=== PATIENT | female | born 1970 | race Caucasian/White ===

== ENCOUNTER 2023-09-25 18:03 | Observation (INO) | payer OTHER, SELFPAY ==
[2023-09-25] VITALS (13 sets, daily range): BP systolic 120–139; BP diastolic 60–79; PULSE 64–74; RESP 15–21; TEMP 36.6; O2SAT 98–100; BMI 45.6
--- NOTE | ~2023-09-25 | MR_ITS ---
EXAMINATION: MR brain/brain stem wo/w con DATE: 09/26/2023 11:40 CDT INDICATION: Left-sided numbness. TECHNIQUE: Magnetic resonance imaging (MRI) of the brain and brainstem was performed without and with intravenous contrast. Sequences included sagittal and axial T1-weighted SE, axial diffusion-weighted FS SE, axial T2*-weighted GRE, axial T2-weighted FLAIR Propeller, and axial T2-weighted Propeller. A pparent diffusion coefficient (ADC) maps were created. 20 cc MultiHance administered intravenously. COMPARISON: CTA brain/carotid dated 09/25/2023 FINDINGS: The brain volume and ventricular system are within normal limits. The brain parenchymal si gnal intensity pattern and mendoza/white matter is normal and there is no evidence of hemorrhage, space occupying masses or infarctions. The flow signal voids of the major arterial structures about the [place] and within the gabrielle r dural venous sinuses appear grossly unremarkable and patent. The seventh and eighth cranial nerve complexes are normal. The mid sagittal image demonstrates a normal craniovertebral junction and shanta us callosum. The paranasal sinuses are grossly unremarkable. No abnormal contrast enhancement was appreciated. IMPRESSION: 1: Unremarkable MRI of the brain. Reviewed, dictated and finalized at location B.
--- NOTE | ~2023-09-25 | CT_ITS ---
EXAMINATION: CTA brain carotid DATE: 09/25/2023 20:56 INDICATION: Left-sided numbness. Dizziness. TECHNIQUE: Computed tomographic angiography (CTA) of the head was performed without and with 100 mL O mnipaque-350 intravenous contrast. CTA of the neck was performed with intravenous contrast. Automated exposure control and iterative reconstruction technique were employed. The dose-length product was 1 633.82 mGy-cm. Maximum intensity projection and volume rendered 3D-reconstructions were created by jeaneth technologist on a separate workstation. COMPARISON: None. FINDINGS: HEAD CTA: There is no intracranial hemorrhage, acute infarction, or abnormal intracranial mass lesion . The ventricles are normal in size. There is mild mucosal thickening in the paranasal sinuses. The m astoid air cells are normal. The vertebral arteries are codominant. There is no significant stenosis of basilar artery or the posterior cerebral arteries. There is no significant stenosis of the intracr anial internal carotid arteries or anterior or middle cerebral arteries. Posterior communicating shannon calvin are not identified. Anterior communicating artery is normal. There is no aneurysm. NECK CTA: There are no pathologically enlarged lymph nodes. There is no significant stenosis of the v ertebral arteries. There is no significant plaque in the proximal internal carotid arteries. There is 0% stenosis of the proximal right internal carotid artery relative to normal distal artery lumen logan meter (NASCET criteria). There is 0% stenosis of the proximal left internal carotid artery relative t o normal distal artery lumen diameter. There are dystrophic placed since from C3-C4 through C6-C7. Th ere is mild cervical spondylosis. IMPRESSION: 1. Normal brain. No aneurysm or significant intracranial arterial stenosis. 2. 0% stenosis of the proximal internal carotid arteries relative to normal distal artery lumen diame ters (NASCET criteria). Reviewed, dictated and finalized at location E. IMPRESSION: 1. Normal brain. No aneurysm or significant intracranial arterial stenosis. 2. 0% stenosis of the proximal internal carotid arteries relative to normal dis michelle artery lumen diameters (NASCET criteria).
--- NOTE | ~2023-09-25 | XR_ITS ---
EXAMINATION: XR chest 1V portable DATE: 09/25/2023 19:33 INDICATION: Palpitations. TECHNIQUE: A single frontal view of the chest was obtained. COMPARISON: None. FINDINGS: There is no pneumonia, pleural effusion, or pneumothorax. The heart size is normal. There a re surgical changes in cervical spine. IMPRESSION: 1. No acute cardiopulmonary disease. Reviewed, dictated and finalized at location E.
--- NOTE | 2023-09-25 18:12 | ECG_ITS ---
[facility] [address] Test Date: 2023-09-25 Pat Name: Emily Johnson Department: Room: Gender: F Runner Man: : 1970 Requested By: Bruce Jay Order Number: [id number] [place] MD: Donovan Carmona M.D. Measurements Intervals [place] Rate: 70 P: 58 IA: 144 QRS: 22 QRSD: 101 T: 38 QT: 413 QTc: 447 Interpretive Statements SINUS RHYTHM No previous ECG available for comparison Electronically Signed On 09-26-2023 12:05:27 CDT by Donovan Carmona M.D.
[2023-09-25] MEDS: SODIUM CHLORIDE 0.9% IV 1,000 ML 999 ML IV CONT (20:03)
[2023-09-25 20:11] LABS: Basophils Percent Auto 0.5 % (0.2-1.2); Eosinophils Absolute Auto 0.1 K/mm3 (0-0.3); Eosinophils Percent Auto 1.5 % (0-4.4); Hematocrit 44.5 % (37.0-47.0); Hemoglobin 14.3 g/dL (12.0-15.0); Immature Granulocyte Absolute 0.02 K/mm3 (0.00-0.031); Immature Granulocyte Percent A 0.2 % (0-0.5); Lymphocytes Absolute Auto 1.65 K/mm3 (0.9-3.2); Lymphocytes Percent Auto 19.1 % (18.3-44.2); Mean Corpuscular HGB Conc 32.1 g/dl (32-36); Mean Corpuscular Volume 90.3 fl (80-100); Mean Platelet Volume 10.4 fl (7.4-10.4); Monocytes Absolute Auto 0.5 K/mm3 (0.1-0.6); Monocytes Percent Auto 5.7 % (2.6-8.5); Neutrophils Absolute Auto 6.3 K/mm3 (1.3-6.7); Platelet Count Result 287 k/mm3 (150-375); Red Blood Count 4.93 M/mm3 (4.2-5.4); Red Cell Distribution Width 13.4 % (11.5-14.5); White Blood Count 8.7 K/mm3 (4.5-10.0)
[2023-09-25 20:19] LABS: Appearance Urine Cloudy (Clear); Bacteria Urine 4+ /hpf; Bilirubin Urine Negative (Negative); Blood Urine Negative (Negative); Color Urine Yellow (Yellow); Glucose Urine UA Trace mg/dL (Negative); Ketones Urine Negative (Negative); Leukocyte Esterase Ur 2+ LEU/UL (Negative); Nitrate Urine Positive (Negative); Non Pathogenic Casts 0-2; Protein Urine Negative (Negative); RBC Urine 0-2 /hpf (0-2); Specific Grav Ur 1.023 (1.001-1.035); Squamous Epithelial Cell Urine Moderate /hpf (Few); WBC Urine 51-100 /hpf (0-3); pH Urine 6.5 (5.0-9.0)
[2023-09-25 20:20] LABS: Alanine Aminotransferase 27 U/L (6-35); Albumin Level 4.7 g/dL (3.5-5.1); Alkaline Phosphatase 128 U/L (38-126); Anion Gap 9 mmol/L (4-12); Aspartate Amino Transferase 27 U/L (14-36); Bilirubin,Total 0.5 mg/dL (0.2-1.3); Blood Urea Nitrogen 9 mg/dL (7-17); Carbon Dioxide 26 mmol/L (22-30); Chloride 107 mmol/L (98-107); Estimated CRCL calculation 113 ml/min; Estimated Glomerular Filt Rate > 60; Glucose 92 mg/dL (65-110); Magnesium 2.1 mg/dL (1.6-2.3); Sodium 142 mmol/L (137-145)
--- NOTE | 2023-09-25 20:20 | ED.GENADULT ---
HPI - General Adult General Chief complaint: Arrhythmia/Palpitations Stated complaint: Chest Flutter Time Seen by Provider: 09/25/23 19:08 History of Present Illness HPI narrative: okay patient before year old female who presents emergency department with chief complaint of palpitations. The patient reports that she has been having feeling of dizziness and reports that she started having a tingling sensation on the left side of her body. Patient reports that she has no motor weakness reports no difficulty with speech no difficulty walking does notice that she has had some swelling in her lower extremities. The patient states that she just feels generally unwell today Related Data Allergies Allergy/AdvReac Type Severity Reaction Status Date / Time acetaminophen [From Vicodin] Allergy Hives Verified 09/25/23 18:14 hydrocodone [From Vicodin] Allergy Hives Verified 09/25/23 18:14 morphine AdvReac Itching Verified 09/25/23 18:14 Review of Systems Review of Systems: A 10 system review of systems was completed on the patient and is negative except for what is stated in the HPI. Nursing and ancillary documentation was reviewed. Exam Narrative: GENERAL: Well-appearing, well-nourished, and in no acute distress. HEAD: Normocephalic, atraumatic. EYES: PERRLA and EOMI. ENT: Nares clear, no rhinorrhea or epistaxis. Mucous membranes moist. NECK: Supple. CHEST: Clear to auscultation. No respiratory distress. HEART: Regular rate and rhythm. No murmur heard. Normal peripheral pulses. ABDOMEN: Soft, nontender, nondistended, normal active bowel sounds. EXTREMITIES: Normal range of motion. No edema. SKIN: Warm, dry, no rash. NEURO: Patient has good range of motion all extremities. No facial droop, slight decreased sensation in the left upper and left lower extremity Alert and oriented x3. PSYCH: Normal mood and affect. Course Vital Signs Vital signs: Vital Signs Temperature 36.6 C 09/25/23 18:10 Pulse Rate 64 09/25/23 18:10 Respiratory Rate 18 09/25/23 18:10 Blood Pressure 139/75 09/25/23 18:10 Pulse Oximetry 98 09/25/23 18:10 Oxygen Delivery Room Air 09/25/23 18:10 Temperature 36.6 C 09/25/23 18:10 Pulse Rate 71 09/25/23 19:02 Respiratory Rate 15 09/25/23 19:02 Blood Pressure 129/79 09/25/23 19:02 Pulse Oximetry 100 09/25/23 19:02 Oxygen Delivery Room Air 09/25/23 18:10 Medical Decision Making [facility] Narrative Medical decision making narrative: differential diagnosis includes CVA, electrolyte abnormality, dysrhythmia, laboratory studies were obtained on the patient which showed evidence of a urinary tract infection. Electrolytes were otherwise within normal limits. CTA head and neck showed no acute abnormality chest x-ray showed no focal infiltrate. EKG showed a dysrhythmia the patient was observed on the monitor showing no evidence of dysrhythmia. The patient has an NIH stroke scale of at most 1 due to the slight decreased sensation on the left arm and left leg. At this time the patient does not meet criteria for tPA and in discussion with the patient the risk benefits of thrombolytics therapy and felt they would not want to pursue given mildness of the symptoms. the patient will be admitted to the hospitalist service for observation MRI the patient was started on Rocephin for the urinary tract infection Vital Signs Vital Signs: Vital Signs Temperature 36.6 C 09/25/23 18:10 Pulse Rate 64 09/25/23 18:10 Respiratory Rate 18 09/25/23 18:10 Blood Pressure 139/75 09/25/23 18:10 Pulse Oximetry 98 09/25/23 18:10 Oxygen Delivery Room Air 09/25/23 18:10 Temperature 36.6 C 09/25/23 18:10 Pulse Rate 71 09/25/23 19:02 Respiratory Rate 15 09/25/23 19:02 Blood Pressure 129/79 09/25/23 19:02 Pulse Oximetry 100 09/25/23 19:02 Oxygen Delivery Room Air 09/25/23 18:10 Lab Data 09/25/23 20:02 09/25/23 20
[2023-09-25 20:21] LABS: Lactic Acid Reflex 1.2 mmol/L (0.7-2.0)
[2023-09-25 20:25] LABS: Add Urine Microscopic? YES; Prothrombin Time 13.1 Seconds (11.1-14.7)
[2023-09-25 20:32] LABS: Troponin I < 0.012 ng/mL (0.000-0.034)
--- NOTE | 2023-09-25 22:39 | PM.IMHP ---
H&P: HPI History of Present Illness Date/Time: 09/25/23 22:39 Chief Complaint: Left arm and hand weakness and numbness Narrative: 53-year-old female who came to the emergency room complaining of numbness and weakness of the left hand. Patient also has generalized complains of generalized weakness lower extremity edema and also some weakness in both the lower extremities. Patient states that all this started with tingling sensation of her left hand and body and has got a little better since then. Patient has no motor weakness no deficit no bloody stool vision no hearing loss no speech difficulty but does complain of some word-finding. No previous history of seizure disorder no history of any stroke Review of Systems Review of Systems: No fevers chills nausea vomiting. No double vision no blurry vision. No difficulty hearing or sinus complaints. No chest pain shortness of breath fever palpitation dizziness ankle swelling. No coughing wheezing chills. No nausea constipation diarrhea abdominal pain reflux. No urgency frequency of urination. No hematuria. No skin rash eczema. No anxiety depression difficulty sleeping. No bleeding gums enlarged glands. No muscle ache back pain joint stiffness. No loss of strength numbness headache tremor or loss of memory. Meds Home Medications and Allergies Allergies Allergy/AdvReac Type Severity Reaction Status Date / Time acetaminophen [From Vicodin] Allergy Hives Verified 09/25/23 18:14 hydrocodone [From Vicodin] Allergy Hives Verified 09/25/23 18:14 morphine AdvReac Itching Verified 09/25/23 18:14 Vital Signs Vital Signs - 24 hr 09/25/23 18:10 09/25/23 18:11 09/25/23 18:12 Temperature 36.6 C Pulse Rate 64 Respiratory Rate 18 Blood Pressure 139/75 139/75 Pulse Oximetry 98 100 98 Oxygen Delivery Room Air 09/25/23 18:15 09/25/23 18:17 09/25/23 18:30 Temperature Pulse Rate 69 Respiratory Rate 17 Blood Pressure 120/65 Pulse Oximetry 99 99 99 Oxygen Delivery 09/25/23 18:32 09/25/23 18:45 09/25/23 18:47 Temperature Pulse Rate 68 70 66 Respiratory Rate 17 18 15 Blood Pressure 122/60 123/66 Pulse Oximetry 99 98 100 Oxygen Delivery 09/25/23 19:00 09/25/23 19:02 09/25/23 22:24 Temperature Pulse Rate 70 71 74 Respiratory Rate 21 H 15 15 Blood Pressure 129/79 Pulse Oximetry 100 100 100 Oxygen Delivery Exam Narrative: GENERAL: Well appearing, no acute distress. HEAD: Normocephalic, atraumatic. NECK: Supple. No adenopathy, no masses. RESPIRATORY: respirations nonlabored. , no rales, wheezing. CARDIOVASCULAR: Regular rate and rhythm without murmurs, . Peripheral pulses 2+ and equal bilaterally. ABDOMINAL: Soft, nontender, nondistended, no hepatosplenomegaly. Normoactive BS. MUSCULOSKELETAL: no Epigastric and no hypochondrial tenderness SKIN: Warm, dry, NEURO: A&O X3. Moves all extremities H&P: Results Labs Labs: Short CBC 09/25/23 Range/Units 20:02 WBC 8.7 (4.5-10.0) K/mm3 Hgb 14.3 (12.0-15.0) g/dL Hct 44.5 (37.0-47.0) % Plt Count 287 (150-375) k/mm3 BMP 09/25/23 20:02 Sodium 142 Potassium 4.0 Chloride 107 Carbon Dioxide 26 BUN 9 Creatinine 0.70 Glucose 92 Calcium 9.0 Cardiac Enzymes 09/25/23 Range/Units 20:02 Troponin I < 0.012 (0.000-0.034) ng/mL Liver Function 09/25/23 Range/Units 20:02 Total Bilirubin 0.5 (0.2-1.3) mg/dL AST 27 (14-36) U/L ALT 27 (6-35) U/L Alkaline Phosphatase 128 H (38-126) U/L Albumin 4.7 (3.5-5.1) g/dL Urine 09/25/23 Range/Units 20:02 Urine Color Yellow (Yellow) Urine Appearance Cloudy H (Clear) Urine pH 6.5 (5.0-9.0) Ur Specific [place] 1.023 (1.001-1.035) Urine Protein Negative (Negative) mg/dL Urine Glucose (UA) Trace H (Negative) mg/dL Assessment and Plan Assessment and plan (1) Left sided numbness: Code(s):
--- NOTE | 2023-09-25 22:52 | ADMGEN ---
This patient, Emily Johnson, was admitted to Medical Room 349-01. Patient/family oriented to hospital policies and general routines including ID bracelet, bed and alarms, visiting hours, pain management, procedures, bathroom and other care routines, personal items, smoking policy, room service/diet, and visiting hours. Information on how to activate the Rapid Response Team has been discussed. Patient/Family are encouraged to report perceived risks to care and to ask questions if they do not understand what they are told or what they should do.
[2023-09-25 23:17] LABS: Hemoglobin A1C 5.4 % (<5.7)
[2023-09-26] VITALS (7 sets, daily range): BP systolic 117–130; BP diastolic 60–70; PULSE 64–100; RESP 16–20; TEMP 36.2–36.8; O2SAT 96–100
[2023-09-26 00:03] LABS: Troponin I < 0.012 ng/mL (0.000-0.034)
[2023-09-26] MEDS: traZODone HCL 50 MG TABLET 100 MG PO ×2 (00:59→20:13)
[2023-09-26] MEDS: ACETAMINOPHEN 325 MG TABLET 650 MG PO ×3 (00:59→21:51)
[2023-09-26] MEDS: buPROPion HCL XL (24 HR) 150 MG TABCR 300 MG PO ×2 (00:59→20:11)
[2023-09-26] MEDS: TOLTERODINE TARTRATE LA 4 MG CAP.ER.24H PO ×2 (00:59→20:11)
[2023-09-26] MEDS: LEVOTHYROXINE SODIUM 112 MCG TABLET PO (05:29)
[2023-09-26 05:39] LABS: Basophils Percent Auto 0.5 % (0.2-1.2); Eosinophils Absolute Auto 0.2 K/mm3 (0-0.3); Eosinophils Percent Auto 2.8 % (0-4.4); Hematocrit 38.2 % (37.0-47.0); Hemoglobin 11.8 g/dL (12.0-15.0); Immature Granulocyte Absolute 0.01 K/mm3 (0.00-0.031); Immature Granulocyte Percent A 0.2 % (0-0.5); Lymphocytes Absolute Auto 2.23 K/mm3 (0.9-3.2); Lymphocytes Percent Auto 36.4 % (18.3-44.2); Mean Corpuscular HGB Conc 30.9 g/dl (32-36); Mean Corpuscular Hemoglobin 28.2 pg (26-34); Mean Corpuscular Volume 91.2 fl (80-100); Mean Platelet Volume 10.2 fl (7.4-10.4); Monocytes Absolute Auto 0.4 K/mm3 (0.1-0.6); Monocytes Percent Auto 6.7 % (2.6-8.5); Neutrophils Absolute Auto 3.3 K/mm3 (1.3-6.7); Neutrophils Percent Auto 53.4 % (45.5-73.1); Platelet Count Result 252 k/mm3 (150-375); Red Blood Count 4.19 M/mm3 (4.2-5.4); Red Cell Distribution Width 13.3 % (11.5-14.5); White Blood Count 6.1 K/mm3 (4.5-10.0)
[2023-09-26 05:58] LABS: Alanine Aminotransferase 20 U/L (6-35); Albumin Level 3.5 g/dL (3.5-5.1); Alkaline Phosphatase 93 U/L (38-126); Anion Gap 4 mmol/L (4-12); Aspartate Amino Transferase 21 U/L (14-36); Bilirubin,Total 0.3 mg/dL (0.2-1.3); Blood Urea Nitrogen 7 mg/dL (7-17); Calcium 8.2 mg/dL (8.4-10.2); Carbon Dioxide 25 mmol/L (22-30); Chloride 111 mmol/L (98-107); Estimated CRCL calculation 112 ml/min; Estimated Glomerular Filt Rate > 60; Glucose 93 mg/dL (65-110); Potassium 3.8 mmol/L (3.4-5.0); Sodium 140 mmol/L (137-145)
--- NOTE | 2023-09-26 07:53 | PM.IMPN ---
Progress Note: A&P Assessment and Plan (1) Left sided numbness: Code(s): R20.0 - Anesthesia of skin Status: Acute Assessment and Plan: left hand numbness. Stroke evaluation. Possible complex migraine causing symptoms. -Vitals and monitoring: - neurochecks - q4 hours x 24 hours - Continuous cardiac monitoring and residential monitor blood pressures closely Imaging: -MRI brain without contrast : pending CTA head and neck done which is negative appears less likely a stroke but will wait for the final MRI findings. (2) Heart palpitations: Code(s): R00.2 - Palpitations Status: Acute Assessment and Plan: On levothyroxine 112 mcg daily TSH reflex ordered and is normal (3) UTI (urinary tract infection): Code(s): N39.0 - Urinary tract infection, site not specified Status: Acute Assessment and Plan: UTI Urine cultures and sensitivity. Continue IV hydration. Monitor CBC CMP Monitor vital signs Start antibiotics IV Rocephin Blood cultures Monitor for obstructive uropathy and pyelonephritis Patient with asymptomatic cystitis. Will stop IV antibiotics now. Patient has been instructed that if she has dysuria, suprapubic tenderness, flank pain, nausea vomiting, fever chills to be re-evaluated with her PCP. Urine culture is pending. Subjective Date/time seen: 09/26/23 07:53 Interval history: 53-year-old female who came to the emergency room complaining of numbness and weakness of the left hand.? Patient also has generalized complains of generalized weakness lower extremity edema and also some weakness in both the lower extremities.? Patient states that all this started with tingling sensation of her left hand and body and has got a little better since then.? Patient has no motor weakness no deficit no bloody stool vision no hearing loss no speech difficulty but does complain of some word-finding.? No previous history of seizure disorder no history of any stroke. 09/25: Patient is seen after her MRI this morning. She is somewhat drowsy because she did receive Xanax prior to the MRI for claustrophobia. She reports that she came in with left-sided numbness and tingling. She describes it as feeling like when your limb falls asleep. She reports that her foot is asleep right now but the rest of her symptoms have resolved. She does still have a persistent migraine headache though. Tylenol is not helping. Will add Fioricet now. MRI of the brain was completed. If MRI is negative patient should likely be able to discharge home today with diagnosis of complex migraine and appropriate PCP follow-up. Review of Systems Review of Systems: All systems reviewed & are unremarkable except as noted in HPI and below Exam Narrative: General: well appearing, appears stated age. HEENT: normocephalic, atraumatic. Mucous membranes moist. EOMI, PERRLA, bilateral sclera anicteric, no conjunctival injection. Neck supple without JVD, lymphadenopathy, or bruit. Respiratory: clear to auscultation bilaterally. No rales/rhonic/wheezes. Cardiovascular: Regular rate and rhythm, normal S1-S2 upon auscultation. No murmurs, rubs, or clicks. PMI is nondisplaced, capillary refill less than 3 second. Abdomen: Soft, round, no pulsatile masses, nondistended and nontender. No rebound, no guarding. No CVA tenderness, no hepatosplenomegaly. Bowel sounds present to all four quadrants. No high pitch or tinkling sounds, resonant to percussion. Extremities: No cyanosis, clubbing, or edema present. Pulses are palpable 2/2. Active ROM to all four extremities. Muscle strength is equal 5/5 to upper and lower extremities. Neuro: Drowsy and orientated x 4. PERRLA. Cranial nerves 2-12 intact without focal deficit. Skin: Warm, dry, and intact, without rash, erythema, or lesion. Lines: Incisions: Psych: pleasant, cooperative, normal speech, normal affect, no hallucinations, no dysarthria Objective Data
[2023-09-26] MEDS: ENOXAPARIN 40 MG/0.4 ML SYRINGE SUB-Q (08:35)
[2023-09-26] MEDS: ALPRAZolam (*CRX) 0.5 MG TABLET PO (09:36)
[2023-09-26] MEDS: ACETAMINOPHEN/BUTALBITAL/CAFFEINE 325-50-40 MG TABLET (FIORICET) 1 TAB PO ×2 (14:36→20:11)
[2023-09-26] MEDS: ONDANSETRON INJ 4 MG/2 ML VIAL IV PUSH (20:09)
[2023-09-27] VITALS: BP 155/68; PULSE 87; RESP 16; TEMP 36.3; O2SAT 96
[2023-09-27 04:00] VITALS: BP 102/57; PULSE 69; RESP 18; TEMP 36.7; O2SAT 97
[2023-09-27] MEDS: ACETAMINOPHEN 325 MG TABLET 650 MG PO (05:29)
[2023-09-27] MEDS: ACETAMINOPHEN/BUTALBITAL/CAFFEINE 325-50-40 MG TABLET (FIORICET) 1 TAB PO ×2 (05:29→09:46)
[2023-09-27] MEDS: LEVOTHYROXINE SODIUM 112 MCG TABLET PO (05:29)
[2023-09-27 08:16] VITALS: BP 103/67; PULSE 66; RESP 15; TEMP 36.6; O2SAT 100
[2023-09-27] MEDS: ENOXAPARIN 40 MG/0.4 ML SYRINGE SUB-Q (08:30)
[2023-09-27 11:44] VITALS: BP 119/69; PULSE 64; RESP 15; TEMP 36.6; O2SAT 97
--- NOTE | 2023-09-27 12:47 | PM.DS ---
DS: Admitting Diagnosis Discharge Date 09/26 Admitting Diagnosis left sided numbness, headache DS: Discharge Diagnosis Discharge Diagnosis (1) Left sided numbness: Code(s): R20.0 - Anesthesia of skin Status: Acute Assessment and Plan: left hand numbness. Stroke evaluation. Possible complex migraine causing symptoms. -Vitals and monitoring: - neurochecks - q4 hours x 24 hours - Continuous cardiac monitoring and hard candy spinner blood pressures closely Imaging: -MRI brain without contrast : pending CTA head and neck done which is negative appears less likely a stroke but will wait for the final MRI findings. (2) Heart palpitations: Code(s): R00.2 - Palpitations Status: Acute Assessment and Plan: On levothyroxine 112 mcg daily TSH reflex ordered and is normal (3) UTI (urinary tract infection): Code(s): N39.0 - Urinary tract infection, site not specified Status: Acute Assessment and Plan: UTI Urine cultures and sensitivity. Continue IV hydration. Monitor CBC CMP Monitor vital signs Start antibiotics IV Rocephin Blood cultures Monitor for obstructive uropathy and pyelonephritis Patient with asymptomatic cystitis. Will stop IV antibiotics now. Patient has been instructed that if she has dysuria, suprapubic tenderness, flank pain, nausea vomiting, fever chills to be re-evaluated with her PCP. Urine culture is pending. DS: Summary Hospital Course Reason for hospitalization: complex migraine headache Hospital Course: 53-year-old female who came to the emergency room complaining of numbness and weakness of the left hand.? Patient also has generalized complains of generalized weakness lower extremity edema and also some weakness in both the lower extremities.? Patient states that all this started with tingling sensation of her left hand and body and has got a little better since then.? Patient has no motor weakness no deficit no bloody stool vision no hearing loss no speech difficulty but does complain of some word-finding.? No previous history of seizure disorder no history of any stroke. 09/25: Patient is seen after her MRI this morning. She is somewhat drowsy because she did receive Xanax prior to the MRI for claustrophobia. She reports that she came in with left-sided numbness and tingling. She describes it as feeling like when your limb falls asleep. She reports that her foot is asleep right now but the rest of her symptoms have resolved. She does still have a persistent migraine headache though. Tylenol is not helping. Will add Fioricet now. MRI of the brain was completed. If MRI is negative patient should likely be able to discharge home today with diagnosis of complex migraine and appropriate PCP follow-up. Status at Discharge Cognitive/behavioral status at discharge: A&Ox4 Time Spent with Patient Time attestation: Total time spent providing and/or coordinating discharge services:57 Exam Narrative: General: well appearing, appears stated age. HEENT: normocephalic, atraumatic. Mucous membranes moist. EOMI, PERRLA, bilateral sclera anicteric, no conjunctival injection. Neck supple without JVD, lymphadenopathy, or bruit. Respiratory: clear to auscultation bilaterally. No rales/rhonic/wheezes. Cardiovascular: Regular rate and rhythm, normal S1-S2 upon auscultation. No murmurs, rubs, or clicks. PMI is nondisplaced, capillary refill less than 3 second. Abdomen: Soft, round, no pulsatile masses, nondistended and nontender. No rebound, no guarding. No CVA tenderness, no hepatosplenomegaly. Bowel sounds present to all four quadrants. No high pitch or tinkling sounds, resonant to percussion. Extremities: No cyanosis, clubbing, or edema present. Pulses are palpable 2/2. Active ROM to all four extremities. Muscle strength is equal 5/5 to upper and lower extremities. Neuro: Drowsy and orientated x 4. PERRLA. Cranial nerves 2-12 intact without focal def
[2023-09-27] MEDS: SUMAtriptan SUCCINATE 25 MG TABLET 50 MG PO (13:07)
== END 2023-09-27 15:06 | disposition home or self-care (01) ==
LOC: ANHED 21:37 → ANH3MED 22:26
PROVIDERS: Admitting Provider Internal Medicine; Emergency Provider Emergency Medicine; Visit Provider Nurse Practitioner Acute Care
DX: N39.0 Urinary tract infection, site not specified (principal); R00.2 Palpitations; R20.0 Anesthesia of skin; E66.01 Morbid (severe) obesity due to excess calories; Z68.42 Body mass index [BMI] 45.0-49.9, adult; Z79.899 Other long term (current) drug therapy
CPT/HCPCS: 36415; 70496; 70498; 70553; 71045; 80053; 81001; 83036; 83605; 83735; 84443; 84484; 85025; 85610; 85730; 87077; 87086; 87088; 87186; 93005; 96361; 96365; 96372; 96375; 99285; A9270; A9577; G0378; J0696; J1650; J2405; J7030; Q9967

== ENCOUNTER 2024-02-16 17:16 | Emergency (ER) | payer OTHER, SELFPAY ==
--- NOTE | ~2024-02-16 | CT_ITS ---
EXAMINATION: CT abdomen pelvis w con DATE: 02/16/2024 19:51 INDICATION: Left flank pain. TECHNIQUE: Computed tomography (CT) of the abdomen and pelvis was performed with 100 mL Omnipaque-350 intravenous contrast. Automated exposure control and iterative reconstruction technique were employe d. The dose-length product was 1837.33 mGy-cm. COMPARISON: None FINDINGS: Mild discoid atelectasis in the right lower lobe. Calcified left lower lobe nodule consistent with ol d granulomatous disease. Heart size is normal. No pericardial or pleural effusion. 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 There are also cholecystectomy clips the gallbladder fossa. Diffuse hepatic steatosis. Spleen, pancreas, bilateral adrenal glands and kidneys are normal. There is prominent wall thickening and surrounding inflammatory stranding associated with a diverticu lum at the proximal sigmoid colon consistent with diverticulitis. Small amount of free fluid in the d eep pelvis. No abscess or free intraperitoneal gas. Normal bowel obstruction. Appendix is normal with a few adjacent surgical clips likely dropped clips related to cholecystectomy. Bladder is normal. Th e uterus is not identified and has likely been surgically resected. No pathologically enlarged abdomi nal or pelvic lymphadenopathy. Mild thoracolumbar dextrocurvature with mild thoracic and moderate low er lumbar spondylosis. There are also bridging osteophytes at multiple levels consistent with diffuse idiopathic skeletal hyperostosis (DISH). IMPRESSION: 1. Radiographically uncomplicated sigmoid diverticulitis. Reviewed, dictated and finalized at location A.
[2024-02-16 17:19] VITALS: BP 135/84; PULSE 85; RESP 18; TEMP 36.8; O2SAT 98
--- NOTE | 2024-02-16 18:19 | ED_ITS ---
HPI - Abdominal Pain General Chief Complaint: Abdominal Pain <Beba Mary PA-C - Last Filed: 02/18/24 17:20> Stated Complaint: L side is on fire <Beba Mary PA-C - Last Filed: 02/18/24 17:20> Time Seen by Provider: 02/16/24 18:19 <Beba Mary PA-C - Last Filed: 02/18/24 17:20> Focused HPI: This is a 53-year-old female that presents to the emergency department for left-sided abdominal pain. Ongoing since earlier this morning. Reports it feels like her side is on fire . Reports some nausea. Denies fevers, vomiting, dysuria, or hematuria. GENERAL: Well-appearing, well-nourished, and in no acute distress. HEAD: Normocephalic, atraumatic. CHEST: Clear to auscultation. ?No respiratory distress. HEART: Regular rate and rhythm.? NEURO: ?Alert and oriented x3. Patient screened in triage and initial orders placed.? ?Additional care and disposition to be based upon?diagnostic testing and treatment. <Beba Mary PA-C - Last Filed: 02/18/24 17:20> Focused HPI: This is a 53-year-old female that presents to the emergency department for left-sided abdominal pain. Ongoing since earlier this morning. Reports it feels like her side is on fire . Reports some nausea. Denies fevers, vomiting, dysuria, or hematuria. GENERAL: Well-appearing, well-nourished, and in no acute distress. HEAD: Normocephalic, atraumatic. CHEST: Clear to auscultation. ?No respiratory distress. HEART: Regular rate and rhythm.? NEURO: ?Alert and oriented x3. Patient screened in triage and initial orders placed.? ?Additional care and disposition to be based upon?diagnostic testing and treatment. Agree with triage assessment. Patient states that the pain is in her left lower quadrant, denies any history of diverticulitis or kidney stones. Denies any dysuria or hematuria. <Dennise Severino MD - Last Filed: 02/16/24 20:25> Related Data Home Medications: Home Medications Medication Instructions Recorded Confirmed bupropion HCl 300 mg 24 hr tablet, 300 mg PO HS 09/25/23 09/25/23 extended release ergocalciferol (vitamin D2) 1,250 1,250 mcg PO WEEKLY 09/25/23 09/25/23 mcg (50,000 unit) capsule levothyroxine 112 mcg tablet 112 mcg PO DAILY 09/25/23 09/25/23 tolterodine 4 mg capsule,extended 4 mg PO HS 09/25/23 09/25/23 release 24 hr trazodone 100 mg tablet 100 mg PO HS PRN Insomnia 09/25/23 09/25/23 <Beba Mary PA-C - Last Filed: 02/18/24 17:20> Allergies/Adverse Reactions: Allergies Allergy/AdvReac Type Severity Reaction Status Date / Time bee venom protein (honey bee) Allergy Anaphylaxis Verified 02/16/24 19:23 hydrocodone [From Vicodin] Allergy Hives Verified 09/25/23 18:14 meloxicam [From Mobic] Allergy Hives Verified 09/25/23 23:33 adhesive tape AdvReac Blister Verified 09/25/23 23:32 codeine AdvReac Nausea Verified 09/25/23 23:34 morphine AdvReac Itching Verified 09/25/23 18:14 dermabond AdvReac Blister Uncoded 09/25/23 23:33 <Beba Mary PA-C - Last Filed: 02/18/24 17:20> Review of Systems Review of Systems: All systems are reviewed and are negative unless stated otherwise in the HPI. <Dennise Severino MD - Last Filed: 02/16/24 20:25> PMFSH Past Medical History Medical History: Medical History (Updated 02/18/24 @ 17:20 by Beba Mary PA-C) History of depression <Beba Mary PA-C - Last Filed: 02/18/24 17:20> Social History Social History: Social History Smoking status: Former smoker Alcohol intake: current Drinks per week: 1 Substance use: never Substance use type: does not use Do You Feel Safe in your Home?: Yes Lack of Transportation: No Lack of Food: Never True Current Housing: I Have Housing Concerned About Future Housing: No Difficulty Paying Gas/Electric Bills: No Difficulty Paying for Meds: No Currently Unemployed: No Education: High School Diploma/GED Difficulty w/ Childcare or Family Care: No Spiritual care concerns: No <Beba Mary PA-C - Last Filed: 02/18/24 17:20> Exam Narrative: General: Alert, awake, afebrile, in no acute distress. HEENT: PERRL, no rhinorrhea, no post nasal drip, oropharynx clear. Cardiovascular: Regular rate and rhythm, no murmurs, rubs or gallops, no peripheral edema. Respiratory: Clear to auscultation bilaterally, no tachypnea, no wheezing, no rhonchi, no rubs, no respiratory distress. Abdomen: Soft, tenderness palpation over the left lower quadrant, nondistended, no rebound, no guarding, no peritoneal signs. Musculoskeletal: No joint swelling or deformity, normal muscle tone. Skin: No rashes or petechia, no signs of infection. Neurological: Alert and oriented to person, place, and time. Follows all commands. No focal deficits, speech is clear and fluent. <Dennise Severino MD - Last Filed: 02/16/24 20:25> Course Vital Signs Vital signs: Vital Signs Temperature 98.3 F 02/16/24 17:19 Pulse Rate 85 02/16/24 17:19 Respiratory Rate 18 02/16/24 17:19 Blood Pressure 135/84 02/16/24 17:19 Pulse Oximetry 98 02/16/24 17:19 Temperature 98.5 F 02/16/24 19:18 Pulse Rate 85 02/16/24 22:50 Respiratory Rate 16 02/16/24 22:50 Blood Pressure 125/99 H 02/16/24 22:50 Pulse Oximetry 99 02/16/24 22:50 Oxygen Delivery Room Air 02/16/24 19:18 <Beba Mary PA-C - Last Filed: 02/18/24 17:20> Vital Signs Temperature 98.3 F 02/16/24 17:19 Pulse Rate 85 02/16/24 17:19 Respiratory Rate 18 02/16/24 17:19 Blood Pressure 135/84 02/16/24 17:19 Pulse Oximetry 98 02/16/24 17:19 Temperature 98.5 F 02/16/24 19:18 Pulse Rate 85 02/16/24 22:50 Respiratory Rate 16 02/16/24 22:50 Blood Pressure 125/99 H 02/16/24 22:50 Pulse Oximetry 99 02/16/24 22:50 Oxygen Delivery Room Air 02/16/24 19:18 <Dennise Severino MD - Last Filed: 02/16/24 20:25> MDM - Abdominal Pain MDM Narrative Medical decision making narrative: The patient was evaluated by myself in the emergency department. History is obtained from patient who is an independent historian and physical exam was performed. External medical records were reviewed at this time. IV was established and pertinent tests were ordered. Patient was administered 2 mg of IV morphine for pain and 4 mg of IV Zofran for nausea. Laboratory results obtained revealing a leukocytosis of 17 point otherwise unremarkable. Urinalysis did reveal urinary tract infection. Imaging studies obtained included CT abdomen and pelvis with IV contrast which was independently interpreted by me revealing an uncomplicated sigmoid diverticulitis, which is pending final radiology interpretation. Patient was informed of these findings at bedside which was informed that she will be placed on an oral antibiotic levofloxacin that she can take for her diverticulitis and her urinary tract infection and patient is agreeable with this plan. Initial dose of levofloxacin 750 mg IV was administered at this time. Differential diagnosis considerations include urinary tract infection, pyelonephritis, biliary colic, pancreatitis. Comorbidities impacting this visit include none. I have evaluated and discussed social determinants of health with the patient that could potentially impact subsequent diagnosis and treatment plans. On repeat assessment of the patient, reevaluation revealed that the patient is doing well and is in no acute distress. Patient symptoms have improved since she arrived to our emergency department. Repeat vital signs were all reviewed and noted to be stable. Differential diagnosis and treatment plan were discussed with the patient at bedside. Patient agrees with discussion and after shared medical decision making agrees with discharge. All questions were answered to the patient's satisfaction. Patient will follow up with GI with Dr. Draper within the next week. A script for levofloxacin was sent to patient's pharmacy to use as prescribed for her diverticulitis and urinary tract infection. Patient was provided with strict return precautions and instructed to return to the emergency department if any new or worsening symptoms develop. The patient was discharged in stable condition. <Dennise Severino MD - Last Filed: 02/16/24 20:25> Lab Data Result diagrams: 02/16/24 19:05 02/16/24 19:05 <Beba Mary PA-C - Last Filed: 02/18/24 17:20> Labs: Lab Results 02/16/24 02/16/24 Range/Units 18:25 19:05 WBC 17.5 H (4.5-10.0) K/mm3 RBC 5.20 (4.2-5.4) M/mm3 Hgb 14.5 (12.0-15.0) g/dL Hct 45.4 (37.0-47.0) % MCV 87.3 (80-100) fl MCH 27.9 (26-34) pg MCHC 31.9 L (32-36) g/dl RDW 14.3 (11.5-14.5) % Plt Count 337 (150-375) k/mm3 MPV 10.5 H (7.4-10.4) fl Immature Gran % (Auto) 0.4 (0-0.5) % Neut % (Auto) 85.8 H (45.5-73.1) % Lymph % (Auto) 8.5 L (18.3-44.2) % Holt % (Auto) 5.0 (2.6-8.5) % Eos % (Auto) 0.1 (0-4.4) % Baso % (Auto) 0.2 (0.2-1.2) % Lymph # (Auto) 1.49 (0.9-3.2) K/mm3 Holt # (Auto) 0.9 H (0.1-0.6) K/mm3 Eos # (Auto) 0.0 (0-0.3) K/mm3 Baso # (Auto) 0.0 (0.0-0.1) K/mm3 Abs Immat Gran (auto) 0.07 H (0.00-0.031) K/mm3 Absolute Neuts (auto) 15.0 H (1.3-6.7) K/mm3 Absolute Nucleated RBC 0.000 (0.0-0.012) K/mm3 Nucleated RBC % 0.0 (0.0-0.2) % Sodium 138 (137-145) mmol/L Potassium 4.0 (3.4-5.0) mmol/L Chloride 100 (98-107) mmol/L Carbon Dioxide 27 (22-30) mmol/L Anion Gap 11 (4-12) mmol/L BUN 15 D (7-17) mg/dL Creatinine 0.90 (0.7-1.0) mg/dL Estim Creat Clear Calc 87 ml/min Estimated GFR > 60 (59 - ) Glucose 128 H (65-110) mg/dL Calcium 9.4 (8.4-10.2) mg/dL Total Bilirubin 1.2 (0.2-1.3) mg/dL AST 19 (14-36) U/L ALT 23 (6-35) U/L Alkaline Phosphatase 133 H (38-126) U/L Total Protein 9.0 H (6.3-8.2) g/dL Albumin 4.9 (3.5-5.1) g/dL Lipase 33 (23-300) U/L Urine Color Dark yellow (Yellow) Urine Appearance Cloudy H (Clear) Urine pH 5.5 (5.0-9.0) Ur Specific [place] 1.034 (1.001-1.035) Urine Protein 1+ H (Negative) mg/dL Urine Glucose (UA) Negative (Negative) mg/dL Urine Ketones Negative (Negative) mg/dL Ur Blood (Man) Negative (Negative) Urine Nitrate Positive H (Negative) Urine Bilirubin 2+ H (Negative) Urine Urobilinogen 1.0 (<2.0) mg/dL Add Ur Microanalysis Reviewed Leukocyte Esterase Rfl 1+ H (Negative) LANRE/UL Urine RBC 6-10 H (0-2) /hpf Urine WBC >100 H (0-3) /hpf Ur Squamous Epith Cells Many H (Few) /hpf Urine Bacteria 4+ H /hpf Urine Casts >20 <Beba Mary PA-C - Last Filed: 02/18/24 17:20> Lab Results 02/16/24 02/16/24 Range/Units 18:25 19:05 WBC 17.5 H (4.5-10.0) K/mm3 RBC 5.20 (4.2-5.4) M/mm3 Hgb 14.5 (12.0-15.0) g/dL Hct 45.4 (37.0-47.0) % MCV 87.3 (80-100) fl MCH 27.9 (26-34) pg MCHC 31.9 L (32-36) g/dl RDW 14.3 (11.5-14.5) % Plt Count 337 (150-375) k/mm3 MPV 10.5 H (7.4-10.4) fl Immature Gran % (Auto) 0.4 (0-0.5) % Neut % (Auto) 85.8 H (45.5-73.1) % Lymph % (Auto) 8.5 L (18.3-44.2) % Holt % (Auto) 5.0 (2.6-8.5) % Eos % (Auto) 0.1 (0-4.4) % Baso % (Auto) 0.2 (0.2-1.2) % Lymph # (Auto) 1.49 (0.9-3.2) K/mm3 Holt # (Auto) 0.9 H (0.1-0.6) K/mm3 Eos # (Auto) 0.0 (0-0.3) K/mm3 Baso # (Auto) 0.0 (0.0-0.1) K/mm3 Abs Immat Gran (auto) 0.07 H (0.00-0.031) K/mm3 Absolute Neuts (auto) 15.0 H (1.3-6.7) K/mm3 Absolute Nucleated RBC 0.000 (0.0-0.012) K/mm3 Nucleated RBC % 0.0 (0.0-0.2) % Sodium 138 (137-145) mmol/L Potassium 4.0 (3.4-5.0) mmol/L Chloride 100 (98-107) mmol/L Carbon Dioxide 27 (22-30) mmol/L Anion Gap 11 (4-12) mmol/L BUN 15 D (7-17) mg/dL Creatinine 0.90 (0.7-1.0) mg/dL Estim Creat Clear Calc 87 ml/min Estimated GFR > 60 (59 - ) Glucose 128 H (65-110) mg/dL Calcium 9.4 (8.4-10.2) mg/dL Total Bilirubin 1.2 (0.2-1.3) mg/dL AST 19 (14-36) U/L ALT 23 (6-35) U/L Alkaline Phosphatase 133 H (38-126) U/L Total Protein 9.0 H (6.3-8.2) g/dL Albumin 4.9 (3.5-5.1) g/dL Lipase 33 (23-300) U/L Urine Color Dark yellow (Yellow) Urine Appearance Cloudy H (Clear) Urine pH 5.5 (5.0-9.0) Ur Specific [place] 1.034 (1.001-1.035) Urine Protein 1+ H (Negative) mg/dL Urine Glucose (UA) Negative (Negative) mg/dL Urine Ketones Negative (Negative) mg/dL Ur Blood (Man) Negative (Negative) Urine Nitrate Positive H (Negative) Urine Bilirubin 2+ H (Negative) Urine Urobilinogen 1.0 (<2.0) mg/dL Add Ur Microanalysis Reviewed Leukocyte Esterase Rfl 1+ H (Negative) LANRE/UL Urine RBC 6-10 H (0-2) /hpf Urine WBC >100 H (0-3) /hpf Ur Squamous Epith Cells Many H (Few) /hpf Urine Bacteria 4+ H /hpf Urine Casts >20 <Dennise Severino MD - Last Filed: 02/16/24 20:25> Imaging Data Radiologist's impression: ITS Impressions Abdomen/Pelvis CT 02/16/24 20:01 IMPRESSION: 1. Radiographically uncomplicated sigmoid diverticulitis. <Beba Mary PA-C - Last Filed: 02/18/24 17:20> ITS Impressions Abdomen/Pelvis CT 02/16/24 20:01 IMPRESSION: 1. Radiographically uncomplicated sigmoid diverticulitis. <Dennise Severino MD - Last Filed: 02/16/24 20:25> Critical Care Time Critical Care Time Critical Care Time: No <Beba Mary PA-C - Last Filed: 02/18/24 17:20> Discharge Plan Discharge Clinical Impression: Acute diverticulitis, UTI (urinary tract infection) <FREDDY Thomas Last Filed: 02/18/24 17:20> Patient Disposition: Home, Self-Care <Beba Mary PA-C - Last Filed: 02/18/24 17:20> Condition: Improved <Beba Mary PA-C - Last Filed: 02/18/24 17:20> Instructions: Antibiotic Form, Diverticulitis (DC), Urinary Tract Infection in Women (DC) <Beba Mary PA-C - Last Filed: 02/18/24 17:20> Additional Instructions: Please take the prescribed antibiotic as instructed for your UTI and diverticulitis. Return to the emergency department if any new or worsening symptoms develop. Follow-up with your family doctor within the next 3-5 days. <Beba Mary PA-C - Last Filed: 02/18/24 17:20> Prescriptions: New levofloxacin 750 mg tablet 750 mg PO DAILY 10 Days Qty: 10 0RF oxycodone-acetaminophen [Percocet] 5-325 mg tablet 1 tablet PO Q6H PRN (Reason: pain) Qty: 10 0RF No Action tolterodine 4 mg capsule,extended release 24hr 4 mg PO HS trazodone 100 mg tablet 100 mg PO HS PRN (Reason: Insomnia) ergocalciferol (vitamin D2) 1,250 mcg (50,000 unit) capsule 1,250 mcg PO WEEKLY Rx Instructions: weekly on wednesday levothyroxine 112 mcg tablet 112 mcg PO DAILY bupropion HCl 300 mg tablet extended release 24 hr 300 mg PO HS sumatriptan succinate [Imitrex] 50 mg tablet 50 mg PO ONCE Qty: 7 0RF <Beba Mary PA-C - Last Filed: 02/18/24 17:20> Follow-up/Referrals: PHYSICIAN,[facility] AGENT [Non-Staff] - Parvez Rodriguez MD [Physician] - 1 Week <Beba Mary PA-C - Last Filed: 02/18/24 17:20> Time of Disposition: 20:21 <FREDDY Thomas Last Filed: 02/18/24 17:20> 20:21 <Dennise Severino MD - Last Filed: 02/16/24 20:25>
[2024-02-16 18:52] LABS: Add Urine Microscopic? YES; Appearance Urine Cloudy (Clear); Bacteria Urine 4+ /hpf; Bilirubin Urine 2+ (Negative); Blood Urine Negative (Negative); Color Urine Dark Yellow (Yellow); Glucose Urine UA Negative (Negative); Ketones Urine Negative (Negative); Leukocyte Esterase Ur 1+ LEU/UL (Negative); Need Manual Microscopic Reviewed; Nitrate Urine Positive (Negative); Non Pathogenic Casts >20; Protein Urine 1+ mg/dL (Negative); Specific Grav Ur 1.034 (1.001-1.035); Squamous Epithelial Cell Urine Many /hpf (Few); WBC Urine >100 /hpf (0-3); pH Urine 5.5 (5.0-9.0)
[2024-02-16 19:10] LABS: Basophils Percent Auto 0.2 % (0.2-1.2); Eosinophils Percent Auto 0.1 % (0-4.4); Hematocrit 45.4 % (37.0-47.0); Hemoglobin 14.5 g/dL (12.0-15.0); Immature Granulocyte Absolute 0.07 K/mm3 (0.00-0.031); Immature Granulocyte Percent A 0.4 % (0-0.5); Lymphocytes Absolute Auto 1.49 K/mm3 (0.9-3.2); Lymphocytes Percent Auto 8.5 % (18.3-44.2); Mean Corpuscular HGB Conc 31.9 g/dl (32-36); Mean Corpuscular Hemoglobin 27.9 pg (26-34); Mean Corpuscular Volume 87.3 fl (80-100); Mean Platelet Volume 10.5 fl (7.4-10.4); Monocytes Absolute Auto 0.9 K/mm3 (0.1-0.6); Neutrophils Percent Auto 85.8 % (45.5-73.1); Platelet Count Result 337 k/mm3 (150-375); Red Cell Distribution Width 14.3 % (11.5-14.5); White Blood Count 17.5 K/mm3 (4.5-10.0)
[2024-02-16 19:18] VITALS: BP 128/79; PULSE 87; RESP 16; TEMP 36.9; O2SAT 96
[2024-02-16 19:20] LABS: Alanine Aminotransferase 23 U/L (6-35); Albumin Level 4.9 g/dL (3.5-5.1); Alkaline Phosphatase 133 U/L (38-126); Anion Gap 11 mmol/L (4-12); Aspartate Amino Transferase 19 U/L (14-36); Bilirubin,Total 1.2 mg/dL (0.2-1.3); Blood Urea Nitrogen 15 mg/dL (7-17); Calcium 9.4 mg/dL (8.4-10.2); Carbon Dioxide 27 mmol/L (22-30); Chloride 100 mmol/L (98-107); Estimated CRCL calculation 87 ml/min; Estimated Glomerular Filt Rate > 60; Glucose 128 mg/dL (65-110); Lipase 33 U/L (23-300); Sodium 138 mmol/L (137-145)
--- NOTE | 2024-02-16 19:38 | PC.NURSE ---
Pt to CT. Will administer medications when pt returns. Pt states she cannot receive morphine IV, only IM. MD Jiménez notified. Per , ok administer medication IM.
[2024-02-16] MEDS: ONDANSETRON INJ 4 MG/2 ML VIAL IV PUSH (20:05)
[2024-02-16] MEDS: MORPHINE SULFATE (*CRX) 2 MG/ML INJ IV PUSH (20:05)
[2024-02-16] MEDS: levoFLOXacin 750 MG/D5W 150 ML 750 MG/150 ML BAG 100 MG IVPB (20:22)
[2024-02-16] MEDS: oxyCODONE/ACETAMINOPHEN (*CRX) 5-325 MG TABLET 1 TABLET PO (21:36)
[2024-02-16 22:50] VITALS: BP 125/99; PULSE 85; RESP 16; O2SAT 99
== END 2024-02-16 23:07 | disposition home or self-care (01) ==
PROVIDERS: Physician Assistant; Emergency Provider Emergency Medicine
DX: K57.32 Diverticulitis of large intestine without perforation or abscess without bleeding (principal); N39.0 Urinary tract infection, site not specified; F32.A Depression, unspecified; Z87.891 Personal history of nicotine dependence; Z79.899 Other long term (current) drug therapy
CPT/HCPCS: 36415; 74177; 80053; 81001; 83690; 85025; 87086; 87181; 96365; 96366; 96375; 99284; A9270; J1956; J2270; J2405; Q9967

== ENCOUNTER 2024-05-14 12:30 | Emergency (ER) | payer OTHER, SELFPAY ==
[2024-05-14 12:34] VITALS: BP 138/79; PULSE 76; RESP 20; TEMP 36.9; O2SAT 100
[2024-05-14 12:55] VITALS: O2SAT 100
[2024-05-14 13:40] LABS: Influenza A QL RT-PCR Negative (Negative); Influenza B QL RT-PCR Negative (Negative); RSV RNA, RT-PCR Negative (Negative); SARS-CoV-2 RNA PCR Negative (Negative)
--- NOTE | 2024-05-14 13:51 | ED.URI ---
HPI - URI/Sore Throat General Chief Complaint: Upper Respiratory Infection Stated Complaint: cough, congestion, body aches Time Seen by Provider: 05/14/24 13:06 Source: patient Mode of arrival: ambulatory Limitations: no limitations History of Present Illness HPI Narrative: This is a 54-year-old female, with history of hypothyroidism, who presents to the emergency department complaining of upper respiratory congestion, cough, myalgias and runny nose for the past 2 days. The patient denies any known sick contacts or recent travel. She has no other complaints at this time. Related Data Home Medications ?Medication ?Instructions ?Recorded ?Confirmed ?Last Taken ?Type bupropion HCl 300 mg 24 hr tablet, 300 mg PO HS 09/25/23 09/25/23 09/24/23 History extended release ergocalciferol (vitamin D2) 1,250 1,250 mcg PO WEEKLY 09/25/23 09/25/23 09/22/23 History mcg (50,000 unit) capsule levothyroxine 112 mcg tablet 112 mcg PO DAILY 09/25/23 09/25/23 09/25/23 History tolterodine 4 mg capsule,extended 4 mg PO HS 09/25/23 09/25/23 09/24/23 History release 24 hr trazodone 100 mg tablet 100 mg PO HS PRN Insomnia 09/25/23 09/25/23 09/24/23 History Allergies Allergy/AdvReac Type Severity Reaction Status Date / Time bee venom protein (honey bee) Allergy Anaphylaxis Verified 05/14/24 12:56 hydrocodone (From Vicodin) Allergy Hives Verified 05/14/24 12:56 meloxicam (From Mobic) Allergy Hives Verified 05/14/24 12:56 adhesive tape AdvReac Blister Verified 05/14/24 12:56 codeine AdvReac Nausea Verified 05/14/24 12:56 morphine AdvReac Itching Verified 05/14/24 12:56 dermabond AdvReac Blister Uncoded 05/14/24 12:56 Review of Systems Review of Systems: All systems reviewed & are unremarkable except as noted in HPI and below PMFSH Past Medical History Medical History Hypothyroidism History of depression Social History Social History Smoking status: Former smoker Alcohol intake: current Drinks per week: 1 Substance use: never Substance use type: does not use Do You Feel Safe in your Home?: Yes Lack of Transportation: No Lack of Food: Never True Current Housing: I Have Housing Concerned About Future Housing: No Difficulty Paying Gas/Electric Bills: No Difficulty Paying for Meds: No Currently Unemployed: No Education: High School Diploma/GED Difficulty w/ Childcare or Family Care: No Spiritual care concerns: No Exam Narrative: GENERAL: Well-developed, well-nourished, and in no acute distress. HEAD: Normocephalic, atraumatic. EYES: PERRLA and EOMI. ENT: Mild bilateral middle turbinates swelling, clear rhinorrhea, no epistaxis. Mucous membranes moist. Oropharynx with mild tonsillar erythema though no hypertrophy exudate or other lesions. Bilateral TMs pearly mendoza nonbulging NECK: Supple. No adenopathy or masses. No carotid bruits or JVD CHEST: Clear to auscultation. No respiratory distress. No wheezes rales or rhonchi HEART: Regular rate and rhythm. No murmur heard. Normal peripheral pulses. SKIN: Warm, dry, no rash. NEURO: Alert and oriented x3. No focal deficit. Moving all 4 limbs spontaneously PSYCH: Normal mood and affect. Course Course Emergency Course: 13:52 - The patient tested negative for COVID, influenza and RSV. I suspect a separate viral upper respiratory infection. Will discharge with decongestants and recommendation for primary care follow-up. I discussed the findings and recommendations with the patient. Discussed return and emergency precautions including signs/symptoms of respiratory distress in ACS. The patient voiced understanding and agreement with the plan. All questions answered to her satisfaction. Vital Signs Vital signs: Vital Signs Temperature 98.4 F 05/14/24 12:34 Pulse Rate 76 05/14/24 12:34 Respiratory Rate 20 05/14/24 12:34 Blood Pressure 138/79 05/14/24 12:34 Pulse Oximetry 100 05/14/24 12:34 Oxygen Delivery Room Air 05/14/24 12:34 Temperature 98.4 F 05/14/24 12:34 Pulse Rate 76 05/14/24 12:34 Respiratory Rate 20 05/14/24 12:34 Blood Pressure 138/79 05/14/24 12:34 Pulse Oximetry 100 05/14/24 12:55 Oxygen Delivery Room Air 05/14/24 12:55 MDM - URI/Sore Throat MDM Narrative Medical decision making narrative: Plan: Labs, symptomatic control, primary care follow-up Differential Diagnosis Differential diagnosis: Likely upper respiratory infection, viral infection, influenza and other (COVID, RSV, other) Lab Data Labs: Lab Results 05/14/24 Range/Units 13:00 Influenza A (RT-PCR) Negative (Negative) Influenza B (RT-PCR) Negative (Negative) RSV (RT-PCR) Negative (Negative) SARS-CoV-2 RNA (RT-PCR) Negative (Negative) Discharge Plan Discharge Clinical Impression: Frontal sinus pain Upper respiratory infection Qualifiers: URI type: acute nasopharyngitis (common cold) Qualified Code(s): J00 - Acute nasopharyngitis [common cold] Patient Disposition: Home, Self-Care Condition: Stable Instructions: Antibiotic Form, Cold Symptoms (ED) Additional Instructions: You were seen in the emergency department. You tested negative for COVID, influenza and RSV. I recommend decongestant medications, a steroid Dosepak and follow up with your primary care doctor. If you develop difficulty breathing, chest pain, or if you have other emergent concerns for life, limb, or eyesight, return to the emergency department. Patient Language: Romansh Prescriptions: New methylprednisolone [Medrol (Misbah)] 4 mg tablets,dose pack See Rx Instructions .ROUTE .COMPLEX Qty: 21 0RF Rx Instructions: for 6 days pseudoephedrine HCl 60 mg tablet 60 mg PO Q8H PRN (Reason: nasal congestion) Qty: 12 0RF Rx Instructions: DNExceed 4 doses/24h No Action levofloxacin 750 mg tablet 750 mg PO DAILY 10 Days Qty: 10 0RF oxycodone-acetaminophen [Percocet] 5-325 mg tablet 1 tablet PO Q6H PRN (Reason: pain) Qty: 10 0RF tolterodine 4 mg capsule,extended release 24hr 4 mg PO HS trazodone 100 mg tablet 100 mg PO HS PRN (Reason: Insomnia) ergocalciferol (vitamin D2) 1,250 mcg (50,000 unit) capsule 1,250 mcg PO WEEKLY Rx Instructions: weekly on wednesday levothyroxine 112 mcg tablet 112 mcg PO DAILY bupropion HCl 300 mg tablet extended release 24 hr 300 mg PO HS sumatriptan succinate [Imitrex] 50 mg tablet 50 mg PO ONCE Qty: 7 0RF Follow-up/Referrals: PHYSICIAN,RESIDENT ASSISTANT CNA [Primary Care Provider] - Reagan Bolivar MD [Physician] - 2 Weeks Stand Alone Forms: Work/School Release IP Time of Disposition: 13:52
--- OUTSIDE RECORDS SUMMARY | 2024-05-18 10:40 | XMS_ITS | Patient Health Summary ---
Author Organization [facility] Address [address] [place] [address] Care Team Providers Care Divorce Attorney Name Role Phone Tabatha Jaimes FAISAL-NATURAL GAS FIELD PROCESSING SUPERVISOR Primary Care Provider Note from [facility],non-owned Affiliates and Associated Physician Practices is amultiple site organization consisting of ambulatory clinics and hospital sitesin [place], [place], [place] and [place]. This disclosure is being madepursuant to the Care Everywhere program and may not contain all information available regarding this patient. Last updated 18.[facility] Allergies * Adhesive Sensitivity(Rash) -Medium Criticality * Codeine(Other) * Hydrocodone-Acetaminophen(Elevated Blood Pressure) -Medium Criticality * Meloxicam(Rash) -Medium Criticality * Morphine(Unknown) Medications * Be aware that medications may not be up to date on this document. Alwaysverify current medications with the patient. * traZODone (DESYREL) 50 MG tablet(Started 11/09/2020) Take 1 tablet by mouth at bedtime * omeprazole (PRILOSEC) 40 MG capsule(Started 09/09/2020) Take 40 mg by mouth 2 times daily * famotidine (PEPCID) 40 MG tablet(Started 10/24/2020) Take 1 tablet by mouth 2 times daily * oxybutynin (DITROPAN) 5 MG tablet(Started 11/09/2020) Take 5 mg by mouth once daily * Multiple Vitamins-Minerals (BARIATRIC MULTIVITAMINS/IRON PO) Take 1 tablet by mouth once daily * tiZANidine (ZANAFLEX) 4 MG tablet(Started 05/28/2021) TAKE 1 TABLET BY MOUTH ONCE DAILY AT BEDTIME NEEDED FOR SPASM/HEADACHE * Probiotic Product (Anygma) capsule(Started 07/30/2021) Take 1 (one) capsule by mouth once daily * ondansetron, disintegrating, (ZOFRAN ODT) 4 MG tablet(Started 07/30/2021) Take 1 (one) tablet by mouth every 4 hours as needed for Nausea/Vomiting * oxyCODONE, immediate release, (ROXICODONE) 5 MG tablet(Started 08/12/2021) Take 1 (one) tablet by mouth every 6 hours as needed for Pain * Cyclobenzaprine HCl (FLEXERIL PO) Take 10 mg by mouth once daily * diphenhydrAMINE HCl (BENADRYL ALLERGY PO) Take by mouth 2 times daily 2 twice daily Active Problems Problem Noted Date Diagnosed Date Gastroesophageal reflux dise ase with esophagitis without hemorrhage 08/11/2021 Hypothyroidism 12/13/2020 Vitamin D deficiency 12/13/2020 S/P laparoscopic sleeve gastrectomy 12/13/2020 Class 3 severe obesity due t o excess calories with serious comorbidity and body mass index (BMI) of 45.0 to 49.9 in adult 12/13/2020 BMI 45.0-49.9, adult 12/13/2020 Gastroesophageal reflux disease 12/13/2020 Social History Tobacco Use Types Packs/Day Years Used Date Smoking Tobacco: Never Smokeless Tobacco: Never Alcohol Use Standard Drinks/Week Comments Yes 0 (1 standard drink = 0.6 oz pur e alcohol) soc/occ. AUDIT-C Answer Date Recorded Q1: How often do you have a drink containing alc ohol? Monthly or less 08/11/2021 Q2: How many drinks containi ng alcohol do you have on a typical day when you are drinking? 1 or 2 08/11/2021 Q3: How often do you have si x or more drinks on one occasion? Never 08/11/2021 Sex and Gender Information Value Date Recorded Sex Assigned at Female 01/29/2021 5:04 PM CDT Gender Identity Female 01/29/2021 5:04 PM CDT Sexual Orientation Straight 01/29/2021 5: 04 PM CDT Last Filed Vital Signs Vital Sign Reading Time Taken Comments Blood Pressure 131/74 02/16/2024 3:48 PM CDT Pulse 81 02/16/2024 3:48 PM CDT Temperature 36.6 ??C (97.8 ??F) 02/16/2024 3:48 PM CD T Respiratory Rate 18 02/16/2024 3:48 PM CDT Oxygen Saturation 99% 02/16/2024 3:48 PM CDT Inhaled Oxygen Concentration 97% 01/29/2021 4 :00 PM CDT Weight 127 kg (280 lb) 02/16/2024 5:32 AM CDT Height 170.2 cm (5' 7 ) 02/16/2024 5:32 AM CDT Body Mass Index 43.85 02/16/2024 5:32 AM CDT Procedures * URINALYSIS W/MICROSCOPIC NO CULTURE(Performed 02/16/2024) * LIPASE BLOOD(Performed 02/16/2024) * COMPREHENSIVE METABOLIC PANEL(Performed 02/16/2024) * CBC W AUTO DIFFERENTIAL(Performed 02/16/2024) * PTH INTACT+CALCIUM(Performed 11/05/2021) Performed for Intestinal malabsorption following gastrectomy (HCC), S/P bariatric surgery * PHOSPHORUS BLOOD(Performed 11/05/2021) Performed for Intestinal malabsorption following gastrectomy (HCC), S/P bariatric surgery * VITAMIN B1(Performed 11/05/2021) Performed for Intestinal malabsorption following gastrectomy (HCC), S/P bariatric surgery * VITAMIN B12 FOLATE PANEL(Performed 11/05/2021) Performed for Intestinal malabsorption following gastrectomy (HCC), S/P bariatric surgery * VITAMIN D 25-HYDROXY(Performed 11/05/2021) Performed for Intestinal malabsorption following gastrectomy (HCC), S/P bariatric surgery * MAGNESIUM BLOOD(Performed 11/05/2021) Performed for Intestinal malabsorption following gastrectomy (HCC), S/P bariatric surgery * LIPID PROFILE(Performed 11/05/2021) Performed for Intestinal malabsorption following gastrectomy (HCC), S/P bariatric surgery * IRON + TRANSFERRIN PANEL(Performed 11/05/2021) Performed for Intestinal malabsorption following gastrectomy (HCC), S/P bariatric surgery * FERRITIN(Performed 11/05/2021) Performed for Intestinal malabsorption following gastrectomy (HCC), S/P bariatric surgery * COMPREHENSIVE METABOLIC PANEL(Performed 11/05/2021) Performed for Intestinal malabsorption following gastrectomy (HCC), S/P bariatric surgery * CBC W AUTO DIFFERENTIAL(Performed 11/05/2021) Performed for Intestinal malabsorption following gastrectomy (HCC), S/P bariatric surgery * CARDIAC RHYTHM STRIP ORDER(Performed 08/18/2021) * FL UGI SERIES(Performed 08/12/2021) Performed for Gastroesophageal reflux disease with esophagitis without hemorrhage * MAGNESIUM BLOOD(Performed 08/12/2021) * COMPREHENSIVE METABOLIC PANEL(Performed 08/12/2021) * CBC W AUTO DIFFERENTIAL(Performed 08/12/2021) * MAGNESIUM BLOOD(Performed 08/11/2021) * VITAMIN B1(Performed 08/11/2021) * MAGNESIUM BLOOD(Performed 08/11/2021) * COMPREHENSIVE METABOLIC PANEL(Performed 08/11/2021) * CBC W AUTO DIFFERENTIAL(Performed 08/11/2021) * VA LAP SLEEVE GASTRECTOMY(Performed 08/11/2021) Performed for Gastroesophageal reflux disease, unspecified whether esophagitis present, Weight gain, Obesities, morbid ([facility]) * BLOOD TYPE VERIFICATION(Performed 08/11/2021) * SARS-COV-2 (COVID-19) IN HOUSE(Performed 08/08/2021) Performed for Gastroesophageal reflux disease with esophagitis without hemorrhage, S/P laparoscopicsleeve gastrectomy, Preop testing * SARS-COV-2 (COVID-19) PANEL (SOIL)(Performed 08/08/2021) Performed for Gastroesophageal reflux disease with esophagitis without hemorrhage, S/P laparoscopicsleeve gastrectomy, Preop testing * TYPE + SCREEN PANEL(Performed 08/05/2021) Performed for BMI 45.0-49.9, adult ([facility]), Class 3 severe obesity due to excess calories with serious comorbidity and body mass index (BMI) of 45.0 to 49.9 in adult ([facility]) * CBC W AUTO DIFFERENTIAL(Performed 08/05/2021) Performed for BMI 45.0-49.9, adult ([facility]), Class 3 severe obesity due to excess calories with serious comorbidity and body mass index (BMI) of 45.0 to 49.9 in adult ([facility]) * BASIC METABOLIC PANEL (CALCIUM TOTAL)(Performed 08/05/2021) Performed for BMI 45.0-49.9, adult ([facility]), Class 3 severe obesity due to excess calories with serious comorbidity and body mass index (BMI) of 45.0 to 49.9 in adult ([facility]) * XR KNEE RIGHT 4VW OR MORE(Performed 07/14/2021) Performed for Acute pain of right knee * IRON + TRANSFERRIN PANEL(Performed 06/11/2021) Performed for S/P laparoscopic sleeve gastrectomy, BMI 45.0-49.9, adult ([facility]) * PT PTT PANEL(Performed 06/11/2021) Performed for S/P laparoscopic sleeve gastrectomy, BMI 45.0-49.9, adult ([facility]) * VITAMIN D 25-HYDROXY(Performed 02/01/2021) Performed for Morbid obesity ([facility]), Bariatric surgery status, Encounter for pre- operative laboratory testing * VITAMIN B12 FOLATE PANEL(Performed 02/01/2021) Performed for Morbid obesity ([facility]), Bariatric surgery status, Encounter for pre- operative laboratory testing * VITAMIN B1(Performed 02/01/2021) Performed for Morbid obesity ([facility]), Bariatric surgery status, Encounter for pre- operative laboratory testing * TSH(Performed 02/01/2021) Performed for Morbid obesity ([facility]), Bariatric surgery status, Encounter for pre- operative laboratory testing * PTH INTACT+CALCIUM(Performed 02/01/2021) Performed for Morbid obesity ([facility]), Bariatric surgery status, Encounter for pre- operative laboratory testing * MAGNESIUM BLOOD(Performed 02/01/2021) Performed for Morbid obesity ([facility]), Bariatric surgery status, Encounter for pre- operative laboratory testing * LIPID PROFILE(Performed 02/01/2021) Performed for Morbid obesity ([facility]), Bariatric surgery status, Encounter for pre- operative laboratory testing * HEMOGLOBIN A1C(Performed 02/01/2021) Performed for Morbid obesity ([facility]), Bariatric surgery status, Encounter for pre- operative laboratory testing * FERRITIN(Performed 02/01/2021) Performed for Morbid obesity ([facility]), Bariatric surgery status, Encounter for pre- operative laboratory testing * COMPREHENSIVE METABOLIC PANEL(Performed 02/01/2021) Performed for Morbid obesity ([facility]), Bariatric surgery status, Encounter for pre- operative laboratory testing * CBC W AUTO DIFFERENTIAL(Performed 02/01/2021) Performed for Morbid obesity ([facility]), Bariatric surgery status, Encounter for pre- operative laboratory testing * FL UGI SERIES(Performed 01/16/2021) Performed for S/P laparoscopic sleeve gastrectomy, Gastroesophageal reflux disease, unspecified whether esophagitis present * COMPREHENSIVE METABOLIC PANEL(Performed 11/04/2016) Performed for Common bile duct (CBD) stricture (HCC) * CBC W/O DIFFERENTIAL(Performed 11/04/2016) Performed for Common bile duct (CBD) stricture (HCC) Results * (ABNORMAL) URINALYSIS W/MICROSCOPIC NO CULTURE (02/16/2024 9:31 AM CDT) Color UA Cortney(A) Straw, Yellow 02/16/2024 9:43 AM [facility] Clarity UA Slt Cloudy(A) Clear 02/16/2024 9:43 AM [facility] Specific Mozelle UA 1.025 1.005 - 1.030 02/16/2024 9:43 AM [facility] pH UA 5.0 5.0 - 8.0 pH 02/16/2024 9:43 AM [facility] Protein UA Negative Negative 02/16/2024 9:43 AM [facility] Glucose UA Negative Negative 02/16/2024 9:43 AM [facility] Ketone UA Negative Negative 02/16/2024 9:43 AM [facility] Bilirubin UA Negative Negative 02/16/2024 9:43 AM [facility] Blood UA Negative Negative 02/16/2024 9:43 AM [facility] Nitrite UA Positive(A) Negative 02/16/2024 9:43 AM [facility] Leukocyte Esterase Negative Negative 02/16/2024 9:43 AM [facility] Urobilinogen UA 4.0(A) Negative mg/dL 02/16/2024 9:43 AM [facility] RBC UA 3-5 None Seen, 0-2, 3-5 /HPF 02/16/2024 9:43 AM [facility] WBC UA 6-10(A) None Seen, 0-5 /HPF 02/16/2024 9:43 AM [facility] Bacteria UA 1+(A) None /HPF 02/16/2024 9:43 AM [facility] Squamous Epithelial Cells UA 3-5 None Seen, 0-2, 3-5 /HPF 02/16/2024 9:43 AM [facility] Mucus UA 4+ /LPF 02/16/2024 9:43 AM [facility] Hyaline Casts UA 0-2 None Seen, 0-2 /LPF 02/16/2024 9:43 AM [facility] Urine URINE SPECIMEN OBTAINED BY CLEAN CATCH PROCEDURE / Unknown Collection / Unknown 02/16/2024 9:31 AM CDT 02/16/2024 9:33 AM CDT Narrative [facility] - 02/16/2024 9:43 AM CDT Sonia Stevens MD LAB - URINALYSIS ORD ERABLES [facility] [address] [place] [address], [facility] [email or web address]] [phone] * (ABNORMAL) CBC W AUTO DIFFERENTIAL (02/16/2024 9:11 AM CDT) Only the most recent of6 resultswithin the time period is included. WBC 20.6(H) 4.0 - 10.7 x10E9/L 02/16/2024 9:34 AM [facility] RBC Count 5.02 3.90 - 5.20 x10E12/L 02/16/2024 9:34 AM [facility] Hemoglobin 13.7 11.9 - 15.8 g/dL 02/16/2024 9:34 AM [facility] Hematocrit 42.4 34.8 - 46.1 % 02/16/2024 9:34 AM [facility] MCV 84.5 80.0 - 98.0 fL 02/16/2024 9:34 AM [facility] MCH 27.3 26.7 - 33.6 pg 02/16/2024 9:34 AM [facility] MCHC 32.3 31.7 - 36.3 g/dL 02/16/2024 9:34 AM [facility] RDW-CV 14.0 11.3 - 14.8 % 02/16/2024 9:34 AM [facility] Platelet Count 319 150 - 420 x10E9/L 02/16/2024 9:34 AM [facility] MPV 10.3 7.8 - 11.4 fL 02/16/2024 9:34 AM [facility] Neutrophil % 90.0(H) 41.0 - 74.0 % 02/16/2024 9:34 AM [facility] Lymphocyte % 4.8(L) 17.0 - 47.0 % 02/16/2024 9:34 AM [facility] Monocyte % 4.6 3.0 - 11.0 % 02/16/2024 9:34 AM [facility] Eosinophil % 0.0 0.0 - 7.0 % 02/16/2024 9:34 AM [facility] Basophil % 0.2 0.0 - 1.6 % 02/16/2024 9:34 AM [facility] Immature Granulocytes % 0.4 0.0 - 1.0 % 02/16/2024 9:34 AM [facility] Neutrophil Absolute 18.56(H) 1.60 - 7.50 x10E9/L 02/16/2024 9:34 AM [facility] Lymphocyte Absolute 1.00 1.00 - 4.40 x10E9/L 02/16/2024 9:34 AM [facility] Monocyte Absolute 0.95 0.15 - 1.00 x10E9/L 02/16/2024 9:34 AM [facility] Eosinophil Absolute 0.00 0.00 - 0.60 x10E9/L 02/16/2024 9:34 AM [facility] Basophil Absolute 0.04 0.00 - 0.13 x10E9/L 02/16/2024 9:34 AM [facility] Blood BLOOD SPECIMEN / Unknown Venipuncture / Unknown 02/16/2024 9:11 AM CDT 02/16/2024 9:31 AM T Sonia Stevens MD LAB - HEMATOLOGY ORD ERABLES [facility] [address] [place] [address], [facility] [[email or web address]] [phone] * (ABNORMAL) COMPREHENSIVE METABOLIC PANEL (02/16/2024 9:11 AM [facility]) Only the most recent of6 resultswithin the time period is included. BUN 10 7 - 26 mg/dL 02/16/2024 10:04 AM [facility] Creatinine 0.85 0.56 - 0.96 mg/dL 02/16/2024 10:04 AM [facility] Sodium 138 136 - 145 mmol/L 02/16/2024 10:04 AM [facility] Potassium 4.0 3.5 - 4.5 mmol/L 02/16/2024 10:04 AM [facility] Chloride 106 98 - 107 mmol/L 02/16/2024 10:04 AM [facility] CO2 22 22 - 29 mmol/L 02/16/2024 10:04 AM [facility] Glucose 146(H) 70 - 115 mg/dL 02/16/2024 10:04 AM [facility] Calcium 9.3 8.4 - 10.2 mg/dL 02/16/2024 10:04 AM [facility] Protein Total 7.9 6.0 - 8.3 g/dL 02/16/2024 10:04 AM [facility] Albumin 3.9 3.4 - 5.0 g/dL 02/16/2024 10:04 AM [facility] Bilirubin Total 1.0 0.2 - 1.2 mg/dL 02/16/2024 10:04 AM [facility] Alkaline Phosphatase 137 40 - 150 U/L 02/16/2024 10:04 AM [facility] ALT 19 5 - 55 U/L 02/16/2024 10:04 AM [facility] AST 16 5 - 34 U/L 02/16/2024 10:04 AM [facility] Anion Gap 10 6 - 16 02/16/2024 10:04 AM [facility] BUN/Creatinine Ratio 12 7 - 23 02/16/2024 10:04 AM [facility] Osmolality Calculated 288 275 - 295 mOsm/kg 02/16/2024 10:04 AM [facility] Albumin/Globulin Ratio 1.0(L) 1.1 - 2.3 02/16/2024 10:04 AM CDT [facility] eGFR by CKD-EPI 81(L) >=90 mL/min/1.7 3 m2 02/16/2024 10:04 AM CDT [facility] Blood BLOOD SPECIMEN / Unknown Venipuncture / Unknown 02/16/2024 9:11 AM CDT 02/16/2024 9:31 AM CDT Sonia Stevens MD LAB - CHEMISTRY MELIDA DUBON [facility] [address] [place] [address], [facility] [email or web address]] [phone] * LIPASE BLOOD (02/16/2024 9:11 AM CDT) Lipase 10 8 - 78 U/L 02/16/2024 10:04 AM CDT [facility] Blood BLOOD SPECIMEN / Unknown Venipuncture / Unknown 02/16/2024 9:11 AM CDT 02/16/2024 9:31 AM CDT Narrative [facility] - 02/16/2024 10:04 AM CDT Lipase results from the [employer] Alinity analyzer may not be comparable with other methodologies. oSnia Stevens MD LAB - CHEMISTRY MELIDA DUBON Performing Organization Address City/[facility]/ZIP Co de Phone Number [facility] [address] [place] [address], [place] [phone] * PTH INTACT+CALCIUM (11/05/2021 3:24 PM CDT) Only the most recent of2 resultswithin the time period is included. PTH Intact 59 15 - 65 pg/mL 11/08/2021 4:42 PM CDT [employer] ([facility]) Calcium 9.4 8.6 - 10.0 mg/dL 11/08/2021 4:42 PM CDT [employer] ([facility]) Comment: Performed By: [employer] [address] [place] [id number] Merchandise Distributor: Douglas Lua MD, PhD Blood BLOOD SPECIMEN / Unknown Venipuncture / Unknown 11/05/2021 3:24 PM CDT 11/05/2021 4:12 PM CDT Robyn Gutierrez [facility] - CHEM ISTRY ORDERABLES Performing Organization Address [facility] de Phone Number [facility] [employer] ([facility]) [address] [place] [address] * (ABNORMAL) VITAMIN B1 (11/05/2021 3:24 PM CDT) Only the most recent of3 resultswithin the time period is included. Vitamin B1 Whole Blood 183(H) 70 - 180 nmol/L 11/10/2021 9:54 AM CDT [employer] ([facility]) Comment: INTERPRETIVE INFORMATION: Vitamin B1, Whole Blood This assay measures the concentration of thiamine diphosphate (TDP), the primary active form of vitamin B1. Approximately 90 percent of vitamin B1 present in whole blood is TDP. Thiamine and thiamine monophosphate, which comprise the remaining 10 percent, are not measured. This test was developed and its performance characteristics determined by [employer]. It has not been cleared or approved by the US Food and Drug Administration. This test was performed in a CLIA certified laboratory and is intended for clinical purposes. Performed By: [employer] [address] [place] [address] Merchandise Distributor: Douglas Lua MD, PhD Blood BLOOD SPECIMEN / Unknown Venipuncture / Unknown 11/05/2021 3:24 PM CDT 11/05/2021 4:12 PM CDT Robyn Odonnellford [facility] - CHEM ISTRY ORDERABLES Performing Organization Address [facility] Co de Phone Number [facility] [employer] ([facility]) [address] [place] [address] * VITAMIN D 25-HYDROXY (11/05/2021 3:24 PM CDT) Only the most recent of2 resultswithin the time period is included. Vitamin D, 25 Hydroxy 35.3 30 - 100 ng/mL 11/05/2021 7:17 PM CDT [facility] Blood BLOOD SPECIMEN / Unknown Venipuncture / Unknown 11/05/2021 3:24 PM CDT 11/05/2021 4:11 PM CDT Narrative [facility] - 11/05/2021 7:17 PM CDT Reference Values: The recommendation for 25-Hydroxy Vitamin D clinical decision points are as follows: Deficient ?? < 20.0 ng/mL Insufficient ??20.0-29.9 ng/mL Sufficient >= 30.0 ng/mL Reference: The Endocrine Society Clinical Practice Guidelines. 2011 If the 25-Hydroxy Vitamin D results are inconsistent with clinical evidence, it is recommended that follow-up testing using a method such as LC-MS/MS be performed to confirm the result. Robyn Gutierrez FISH AGENT-NATURAL GAS FIELD PROCESSING SUPERVISOR LAB - CHEM ISTRY ORDERABLES [facility] [address] * PHOSPHORUS BLOOD (11/05/2021 3:24 PM CDT) Phosphorus 3.11 2.3 - 4.7 mg/dL 11/05/2021 4:39 PM CDT [facility] Blood BLOOD SPECIMEN / Unknown Venipuncture / Unknown 11/05/2021 3:24 PM CDT 11/05/2021 4:12 PM CDT Robyn Gutierrez FISH AGENT-[facility] LAB - CHEM ISTRY ORDERABLES [facility] [address] * MAGNESIUM BLOOD (11/05/2021 3:24 PM CDT) Only the most recent of5 resultswithin the time period is included. Magnesium 1.9 1.6 - 2.6 mg/dL 11/05/2021 4:39 PM CDT [facility] Blood BLOOD SPECIMEN / Unknown Venipuncture / Unknown 11/05/2021 3:24 PM CDT 11/05/2021 4:12 PM CDT Robyn Gutierrez FISH AGENT-NATURAL G[employer] FIELD PROCESSING SUPERVISOR LAB - CHEM ISTRY ORDERABLES Performing Organization Address City/[facility] Co de Phone Number [facility] [address] * VITAMIN B12 FOLATE PANEL (11/05/2021 3:24 PM CDT) Only the most recent of2 resultswithin the time period is included. Vitamin B12 474 213 - 816 pg/mL 11/05/2021 5:16 PM CDT [facility] Folate 19.5 7.0 - 31.4 ng/mL 11/05/2021 5:16 PM CDT [facility] Blood BLOOD SPECIMEN / Unknown Venipuncture / Unknown 11/05/2021 3:24 PM CDT 11/05/2021 4:12 PM CDT Robyn Gutierrez FISH AGENT-[facility] LAB - CHEM ISTRY ORDERABLES Performing Organization Address [facility] de Phone Number [facility] [address] * IRON + TRANSFERRIN PANEL (11/05/2021 3:24 PM CDT) Only the most recent of2 resultswithin the time period is included. Iron 76 50 - 170 ug/dL 11/05/2021 6:50 PM CDT [facility] Transferrin 249 180 - 382 mg/dL 11/05/2021 6:50 PM CDT [facility] TIBC Calculated 311 261 - 497 ug/dL 11/05/2021 6:50 PM CDT [facility] Iron Saturation % 24 11 - 45 % 11/05/2021 6:50 PM CDT [facility] Blood BLOOD SPECIMEN / Unknown Venipuncture / Unknown 11/05/2021 3:24 PM CDT 11/05/2021 4:12 PM CDT Robyn Gutierrez FISH AGENT-NATURAL G[employer] FIELD PROCESSING SUPERVISOR LAB - CHEM ISTRY ORDERABLES Performing Organization Address City/[facility]/ZIP Co de Phone Number [facility] [address] [place] [address] * FERRITIN (11/05/2021 3:24 PM CDT) Only the most recent of2 resultswithin the time period is included. Ferritin 40 5 - 204 ng/mL 11/05/2021 5:16 PM CDT [facility] Blood BLOOD SPECIMEN / Unknown Venipuncture / Unknown 11/05/2021 3:24 PM CDT 11/05/2021 4:12 PM CDT Robyn Gutierrez FISH AGENT-NATURAL G[employer] FIELD PROCESSING SUPERVISOR LAB - CHEM ISTRY ORDERABLES [facility] [address] * LIPID PROFILE (11/05/2021 3:24 PM CDT) Only the most recent of2 resultswithin the time period is included. Cholesterol 171 <200 mg/dL 11/05/2021 4:39 PM CDT [facility] Triglycerides 110 <150 mg/dL 11/05/2021 4:39 PM CDT [facility] HDL Cholesterol 42 >40 mg/dL 2 4:39 PM CDT [facility] Chol HDL Ratio 4.1 1.0 - 6.0 11/05/2021 4:39 PM CDT [facility] LDL Calculated 107 65 - 130 mg/dL 11/05/2021 4:39 PM CDT [facility] VLDL Calculated 22 <=30 mg/dL 2 4:39 PM CDT [facility] Blood BLOOD SPECIMEN / Unknown Venipuncture / Unknown 11/05/2021 3:24 PM CDT 11/05/2021 4:12 PM CDT Narrative [facility] - 11/05/2021 4:39 PM CDT Lipid Profile Comment: CHOLESTEROL LEVEL..................CLINICAL INTERPRETATION LESS THAN 200 MG/DL..............................DESIRABLE 200-239 MG/DL..............................BORDERLINE HIGH GREATER THAN 240 MG/DL................................HIGH LDL-CHOLESTEROL LEVEL..............CLINICAL INTERPRETATION LESS THAN 100 MG/DL................................OPTIMAL 100-129 MG/DL.................................NEAR OPTIMAL GREATER THAN 160 MG/DL...........................HIGH RISK HDL RISK LEVEL GREATER THEN 60 MG/DL............................DECREASED 40-60 MG/DL........................................AVERAGE LESS THAN 40 MG/DL...............................INCREASED TRIGLYCERIDE LEVEL..................CLINICAL INTERPRETATION LESS THAN 150 MG/DL...............................DESIRABLE 150-199 MG/DL...............................BORDERLINE HIGH 200-499 MG/DL..........................................HIGH GREATER THAN 500..................................VERY HIGH THE NATIONAL CHOLESTEROL EDUCATION PROGRAM HAS SET THE ABOVE GUIDELINES (REFERANCE VALUES) FOR CHOLESTEROL AND HDL. RISK ASSOCIATED WITH CHOLESTEROL/HDL RATIOS RISK....................MALE RATIO.............FEMALE RATIO 1/2 AVERAGE.................<3.4.......................<3.3 LOW RISK.................... 4.0 ...................... 3.8 AVERAGE..................... 5.0 ...................... 4.5 2X AVERAGE.................. 9.5 ...................... 7.0 3X AVERAGE...................>23........................>11 Robyn Gutierrez FISH AGENT-NATURAL GAS FIELD PROCESSING SUPERVISOR LAB - CHEM ISTRY ORDERABLES Performing Organization Address City/State/[facility] Co de Phone Number [place] [phone] * CARDIAC RHYTHM STRIP ORDER (08/18/2021 3:23 PM CDT) Narrative 08/18/2021 3:23 PM CDT Ordered by an unspecified provider. Scanned Document CARDIAC SERVICES ORD ERABLES * FL UGI SERIES WO KUB (08/12/2021 9:07 AM CDT) Only the most recent of2 resultswithin the time period is included. Anatomical Region Laterality Modality Abdomen Radio Fluoroscop y 08/12/2021 9:51 AM CDT Impressions 08/12/2021 9:54 AM CDT IMPRESSION: Cine fluoroscopy, spot film imaging, and upright radiographic imaging performed. Ready passage of water-soluble contrast material through the esophagus to opacify the gastric pouch. Contrast material flowed readily from the gastric pouch into small bowel without obstruction or contrast extravasation. No ulceration or mass lesions identified. Postcholecystectomy. Degenerative and hypertrophic change in lumbar spine. > Interpreting Provider: Adriano Coronado MD on 08/12/2021 9:54 AM Narrative 08/12/2021 9:54 AM CDT PROCEDURE: ??FL UGI SERIES, DATE OF EXAM: ??08/12/2021, LOCATION ??[facility] INDICATION: Gastroesophageal reflux disease with esophagitis without hemorrhage. ADDITIONAL CLINICAL INFORMATION: Ordering Provider Reason For Exam: ??One day status post Edlla-en-Y procedure. Technologist Note: Additional: COMPARISON: 01/16/2021 upper GI. FLUOROSCOPY TIME: ??1.2 minutes; 34.9 mGy. Procedure Note Adriano Coronado MD - 08/12/2021 PROCEDURE: FL UGI SERIES, DATE OF EXAM: 08/12/2021, LOCATION [facility] INDICATION: Gastroesophageal reflux disease with esophagitis without hemorrhage. ADDITIONAL CLINICAL INFORMATION: Ordering Provider Reason For Exam: One day status post Della-en-Y procedure. Technologist Note: Additional: COMPARISON: 01/16/2021 upper GI. FLUOROSCOPY TIME: 1.2 minutes; 34.9 mGy. IMPRESSION: Cine fluoroscopy, spot film imaging, and uprightradiographic imaging performed. Ready passage of water-soluble contrast material through the esophagusto opacify the gastric pouch. Contrast material flowed readily from the gastric pouch into small bowel without obstruction or contrast extravasation. No ulceration or mass lesions identified. Postcholecystectomy. Degenerative and hypertrophic change in lumbarspine. > Interpreting Provider: Adriano Coronado MD on 08/12/2021 9:54 AM Sina Glaser MD FLUOROSCOPY ORDERABL ES * BLOOD TYPE VERIFICATION (08/11/2021 9:06 AM CDT) ABO Rh A POS 08/11/2021 10:47 AM CDT [facility] BLOOD BANK Blood Bank BLOOD SPECIMEN / Unknown Lab Venipuncture / Unknown 08/11/2021 9:06 AM CDT 08/11/2021 9:26 AM CDT Sina Glaser MD LAB - BLOOD BANK ORD ERABLES [facility] BLOOD BANK [address] * SARS-COV-2 (COVID-19) INTERNAL (08/08/2021 2:34 PM CDT) COVID-19 PCR Not detected Not detected 08/09/2021 3:39 AM CDT [facility]CRO[facility] Microbiology SPECIMEN FROM NASOPHARYNGEAL STRUCTURE / Unknown Collection / Unknown 08/08/2021 2:34 PM CDT 08/08/2021 4:37 PM CDT Narrative [facility] - 08/09/2021 3:39 AM CDT This nucleic acid amplification assay performance was validated by [facility]. This test has been authorized by the Food and Drug administration (FDA)under an Emergency??Use Authorization (EUA). This test has been validated in accordance with the FDA's guidance document Policy for Diagnostic Testing in Laboratories Certified to perform High Complexity Testing under CLIA prior to Emergency Use Authorization for Coronavirus Disease-2019 during the Public Health Emergency issued on June 24, 2019. FDA independent review of this validation is pending. This test is only authorized for the duration of time the declaration that circumstances exist justifying the authorization of emergency use of in vitro diagnostic tests for detection of SARS-CoV-2 virus and/or diagnosis of COVID-19 infection under section 564(b)(1) of the Act, 21 U.S.C 360bbb-3 (b)(1), unless the authorization is terminated or revoked sooner. Fact Sheets for this EUA assay are available upon request. Sina Glaser MD LAB - MICROBIOLOGY O RDERABLES [facility] [address] [place] [address], [facility] [[email or web address]] [phone] * TYPE + SCREEN PANEL (08/05/2021 2:26 PM CDT) Pathologist [facility] ABO Rh A POS 08/05/2021 4:25 PM CDT [facility] BLOOD BANK Comment:No history; collect retype. Antibody Screen NEG 4:25 PM CDT [facility] BLOOD BANK Blood Bank BLOOD SPECIMEN / Unknown Venipuncture / Unknown 08/05/2021 2:26 PM CDT 08/05/2021 2:31 PM CDT Luis Odonnell MD LAB - BLOOD BANK OR DERABLES [facility] BLOOD BANK [address] * (ABNORMAL) BASIC METABOLIC PANEL (CALCIUM TOTAL) (08/05/2021 2:26 PM CDT) [facility] Glucose 100 70 - 125 mg/dL 08/05/2021 2:54 PM CDT [facility] Sodium 141 136 - 145 mmol/L 08/05/2021 2:54 PM CDT [facility] Potassium 4.1 3.4 - 4.5 mmol/L 08/05/2021 2:54 PM CDT [facility] Chloride 110(H) 98 - 107 mmol/L 08/05/2021 2:54 PM CDT [facility] CO2 23 22 - 29 mmol/L 08/05/2021 2:54 PM CDT [facility] Calcium 9.91 8.4 - 10.2 mg/dL 08/05/2021 2:54 PM CDT [facility] Anion Gap 12 10 - 20 mmol/L 08/05/2021 2:54 PM CDT [facility] BUN 18.0 9.8 - 20.1 mg/dL 08/05/2021 2:54 PM CDT [facility] Creatinine 0.80 0.57 - 1.11 mg/dL 08/05/2021 2:54 PM CDT [facility] eGFR by MDRD >60 >60 mL/min/1.7 3m2 08/05/2021 2:54 PM CDT [facility] eGFR by MDRD >60 >60 mL/min/1.7 3m2 08/05/2021 2:54 PM CDT [facility] Blood BLOOD SPECIMEN / Unknown Venipuncture / Unknown 08/05/2021 2:26 PM CDT 08/05/2021 2:31 PM CDT Luis Odonnell MD LAB - CHEMISTRY ORD ERABLES [facility] [address] [place] [address], [facility] [[email or web address]] * XR KNEE 4+ VW RIGHT [id number] (07/14/2021 3:31 PM CDT) Anatomical Region Laterality Modality Lower Extremity Radiographic Sheila ging 07/14/2021 3:35 PM CDT Impressions 07/14/2021 3:41 PM CDT IMPRESSION: 1.No evidence of acute fracture or dislocation. 2.Mild tricompartmental degenerative change right knee, most marked in medial compartment. No apparent bone destruction or large joint effusion. 3.If clinical concern persists, consider MRI. > Interpreting Provider: Omaira Coronado MD on 07/14/2021 3:41 PM Narrative 07/14/2021 3:41 PM CDT NARRATIVE: PROCEDURE: ??XR KNEE RIGHT 4VW OR MORE, DATE/TIME OF EXAM: ??07/14/2021 3:31 PM, LOCATION ??[facility] CLINICAL HISTORY: Pain. COMPARISON: No comparison. Procedure Note Mike Coronado MD - 07/14/2021 NARRATIVE: PROCEDURE: XR KNEE RIGHT 4VW OR MORE, DATE/TIME OF EXAM: :31 PM, LOCATION [facility] CLINICAL HISTORY: Pain. COMPARISON: No comparison. IMPRESSION: 1.No evidence of acute fracture or dislocation. 2.Mild tricompartmental degenerative change right knee, most marked in medial compartment. No apparent bone destruction or large jointeffusion. 3.If clinical concern persists, consider MRI. > Interpreting Provider: Omaira Coronado MD on 07/14/2021 3:41 PM Lizzy E Stewart FISH AGENT-NATURAL GAS FIELD PROCESSING SUPERVISOR DIAGNOSTIC IM AGING ORDERABLES * (ABNORMAL) PT PTT PANEL (06/11/2021 2:19 PM RN TELEHEALTH) PT 13.2 11.3 - 14.8 sec 06/11/2021 2:42 PM RN TELEHEALTH [facility] INR 1.03(L) 2 - 3 06/11/2021 2:42 PM RN TELEHEALTH [facility] PTT 25.6 23.0 - 38.4 sec 06/11/2021 2:42 PM RN TELEHEALTH [facility] Blood BLOOD SPECIMEN / Unknown Venipuncture / Unknown 06/11/2021 2:19 PM RN TELEHEALTH 06/11/2021 2:26 PM RN TELEHEALTH Narrative [facility] - 06/11/2021 2:42 PM RN TELEHEALTH Recommended therapeutic INR ranges for Oral Anticoagulant Therapy: ??2.0-3.0 For prevention of Thrombosis or Embolism and treatment of Venous Thrombosis. 2.5- 3.5 for prevention of Recurrent Embolism or treatment of patients with Mechanical Prosthetic Heart Valves. Kavita Uribe APRN-NATURAL GAS FIELD PROCESSING SUPERVISOR LAB - COAGULATIO N ORDERABLES [facility] [address] * (ABNORMAL) HEMOGLOBIN A1C (02/01/2021 10:13 AM CDT) Hemoglobin A1c 6.1(H) 0.0 - 5.7 % 02/01/2021 12:14 PM CDT [facility] ([facility]) Blood BLOOD SPECIMEN / Unknown Lab Venipuncture / Unknown 02/01/2021 10:13 AM CDT 02/01/2021 10:13 AM CDT Narrative [facility] ([facility]) - 02/01/2021 12:14 PM CDT [employer] Suggested Interpretation: 5.7-6.4% Hemoglobin A1c = Prediabetes >6.5% Hemoglobin A1c = Consistent with Diabetes Sina Glaser MD LAB - CHEMISTRY MELIDA DUBON [facility] ([facility]) [address] [place] [address] * TSH (02/01/2021 10:13 AM CDT) [facility] TSH 4.330 0.465 - 4.680 mIU/mL 02/01/2021 1:21 PM CDT [facility] ([facility]) Blood BLOOD SPECIMEN / Unknown Lab Venipuncture / Unknown 02/01/2021 10:13 AM CDT 02/01/2021 10:13 AM CDT Sina Glaser MD LAB - CHEMISTRY MELIDA DUBON [facility] ([facility]) [address] [place] [address] * CBC W/O DIFFERENTIAL (11/04/2016 10:59 AM CDT) [facility] WBC 6.3 4.0 - 10.0 x10E9/L 11/04/2016 11:33 AM CDT [facility] RBC 4.64 3.93 - 5.22 x10E12/L 11/04/2016 11:33 AM T [facility] Hemoglobin 13.7 11.2 - 15.7 gm/dL 11/04/2016 11:33 AM T [facility] Hematocrit 40.9 34.1 - 44.9 % 11/04/2016 11:33 AM T [facility] MCV 88.1 78.0 - 100.0 fl 11/04/2016 11:33 AM CDT [facility] MCH 29.5 25.6 - 34.0 pg 11/04/2016 11:33 AM CDT [facility] MCHC 33.5 32.3 - 36.5 gm/dL 11/04/2016 11:33 AM CDT [facility] RDW 13.5 11.6 - 14.4 % 11/04/2016 11:33 AM CDT [facility] MPV 10.2 9.4 - 12.4 fl 11/04/2016 11:33 AM T [facility] Platelet Count 260 163 - 369 x10E9/L 11/04/2016 11:33 AM T [facility] Blood BLOOD SPECIMEN / Unknown Lab Venipuncture / Unknown 11/04/2016 10:59 AM CDT 11/04/2016 11:21 AM CDT Evelyne Bhandari MD LAB - HEMATOLOGY ORD ERABLES [facility] [address] Care Teams Divorce Attorney Relationship Specialty Start Date End Date Tabatha [place], FISH AGENT-NATURAL GAS FIELD PROCESSING SUPERVISOR [address] [place] [address] PCP - General Nurse Practitioner 12/10/20
--- OUTSIDE RECORDS SUMMARY | 2024-05-18 10:40 | XMS_ITS | Referral Summary ---
Author Organization [facility] Address [address] [place] [address] Care Team Providers Care Piano Builder Name Role Phone Tabatha [place] GROUND SUPPORT EQUIPMENT ASSEMBLER-HUMAN RESOURCES COORDINATOR Primary Care Provider Source Comments [facility],non-owned Affiliates and Associated Physician Practices is amultiple site organization consisting of ambulatory clinics and hospital sitesin [place], [place], [place] and [place]. This disclosure is being madepursuant to the Care Everywhere program and may not contain all information available regarding this patient. Last updated 18.[facility] [employer] Encounters Date Type Department Care Team Description 02/16/2024 Travel 02/16/2024 4:22 PM CDT - 02/16/2024 4:26 PM CDT Emergency [facility] EMERGENCY DEPARTMENT [address] [place] [id number] Discharge Disposition: Left Against Medical Advice/Discontinued Care from Last 3 Months Allergies Active Allergy Reactions Criticality Noted Date Comments Adhesive Sensitivity Rash Medium 12/10/2020 - Codeine Other 01/29/2021 Hypertension & pain all over Hydrocodone-Acetaminoph en Elevated Blood Pressure Medium 10/13/2019 Meloxicam Rash Medium 10/13/2019 Morphine Unknown 10/13/2019 Medications * Be aware that medications may not be up to date on this document. Alwaysverify current medications with the patient. Medication Sig Dispensed Refills Start Date End Date Status traZODone (DESYREL) 50 MG tablet Take 1 tablet by mouth at bedtime 11/09/2020 Active omeprazole (PRILOSEC) 40 MG capsule Take 40 mg by mouth 2 times daily 09/09/2020 Active famotidine (PEPCID) 40 MG tablet Take 1 tablet by mouth 2 times daily 10/24/2020 Active oxybutynin (DITROPAN) 5 MG tablet Take 5 mg by mouth once daily 11/09/2020 Active Multiple Vitamins-Minerals (BARIATRIC MULTIVITAMINS/IRON PO) Take 1 tablet by mouth once daily Active tiZANidine (ZANAFLEX) 4 MG tablet TAKE 1 TABLET BY MOUTH ONCE DAILY AT BEDTIME NEEDED FOR SPASM/HEADACHE 05/28/2021 Active Probiotic Product (eDreams Edusoft) capsuleIndications:Gas troesophageal reflux disease with esophagitis without hemorrhage,S/P laparoscopic sleeve gastrectomy Take 1 (one) capsule by mouth once daily 30 capsule 07/30/2021 Active ondansetron, disintegrating, (ZOFRAN ODT) 4 MG tabletIndications:Bryan roesophageal reflux disease with esophagitis without hemorrhage,S/P laparoscopic sleeve gastrectomy Take 1 (one) tablet by mouth every 4 hours as needed for Nausea/Vomiting 12 tablet 07/30/2021 Active Additional Information Patient not taking.Reported on 08/11/2021 oxyCODONE, immediate release, (ROXICODONE) 5 MG tabletIndications:Bryan roesophageal reflux disease with esophagitis without hemorrhage,S/P laparoscopic sleeve gastrectomy,Morbid obesity (HCC),S/P bypass gastrojejunostomy Take 1 (one) tablet by mouth every 6 hours as needed for Pain 12 tablet 08/12/2021 Active Additional Information Patient not taking.Reported on 08/18/2021 Cyclobenzaprine HCl (FLEXERIL PO) Take 10 mg by mouth once daily Active diphenhydrAMINE HCl (BENADRYL ALLERGY PO) Take by mouth 2 times daily 2 twice daily Active Active Problems Problem Noted Date Diagnosed Date [...] Mass Index 43.85 02/16/2024 5:32 AM CDT Functional Status Functional Status Response Date of Assess ment Is person deaf or have serious hearing difficult y? No 08/11/2021 Is person blind or have serious difficulty seein g? No 08/11/2021 Does person have serious dif ficulty walking/climbing stairs? No 08/11/2021 Does person have difficulty dressing/bathing? No 08/11/2021 Does person have difficulty doing errands alone? No 08/11/2021 Cognitive Status Response Date of Assessm ent Does person have difficulty concentrating/remembering/making decisions? No 08/11/2021 Plan of Treatment Not on file Procedures Procedure Name Priority Date/Time Associated Diagnosis Comments URINALYSIS W/MICROSCOPIC NO CULTURE STAT 02/16/2024 9:31 AM CDT LIPASE BLOOD STAT 02/16/2024 9:11 AM CDT COMPREHENSIVE METABOLIC PANEL STAT 02/16/2024 9:11 AM CDT CBC W AUTO DIFFERENTIAL STAT 02/16/2024 9:11 AM CDT LIPID PROFILE Routine 11/05/2021 3:24 PM CDT Intestinal malabsorption following gastrectomy (HCC) S/P bariatric surgery from Last 3 Months or Most Recently Relevant to Health Maintenance Results * (ABNORMAL) URINALYSIS W/MICROSCOPIC NO CULTURE (02/16/2024 9:31 AM CDT) Color UA Cortney(A) Straw, Yellow 02/16/2024 9:43 AM [facility] Clarity UA Slt Cloudy(A) Clear 02/16/2024 9:43 AM [facility] Specific [place] UA 1.025 1.005 - 1.030 02/16/2024 9:43 AM [facility] pH UA 5.0 5.0 - 8.0 pH 02/16/2024 9:43 AM [facility] Protein UA Negative Negative 02/16/2024 9:43 AM [facility] Glucose UA Negative Negative 02/16/2024 9:43 AM [facility] Ketone UA Negative Negative 02/16/2024 9:43 AM [facility] Bilirubin UA Negative Negative 02/16/2024 9:43 AM [facility] Blood UA Negative Negative 02/16/2024 9:43 AM [facility] Nitrite UA Positive(A) Negative 02/16/2024 9:43 AM [facility] Leukocyte Esterase Negative Negative 02/16/2024 9:43 AM [facility] Urobilinogen UA 4.0(A) Negative mg/dL 02/16/2024 9:43 AM [facility] RBC UA 3-5 None Seen, 0-2, 3-5 /HPF 02/16/2024 9:43 AM T [facility] WBC UA 6-10(A) None Seen, 0-5 /HPF 02/16/2024 9:43 AM T [facility] Bacteria UA 1+(A) None /HPF 02/16/2024 9:43 AM T [facility] Squamous Epithelial Cells UA 3-5 None Seen, 0-2, 3-5 /HPF 02/16/2024 9:43 AM T [facility] Mucus UA 4+ /LPF 02/16/2024 9:43 AM T [facility] Hyaline Casts UA 0-2 None Seen, 0-2 /LPF 02/16/2024 9:43 AM T [facility] Urine URINE SPECIMEN OBTAINED BY CLEAN CATCH PROCEDURE / Unknown Collection / Unknown 02/16/2024 9:31 AM CDT 02/16/2024 9:33 AM CDT [facility] - 02/16/2024 9:43 AM CDT Sonia Stevens MD LAB - URINALYSIS ORD ERABLES [facility] [address] [place] [phone], [facility] [phone] * (ABNORMAL) CBC W AUTO DIFFERENTIAL (02/16/2024 9:11 AM CDT) WBC 20.6(H) 4.0 - 10.7 x10E9/L 02/16/2024 9:34 AM [facility] RBC Count 5.02 3.90 - 5.20 x10E12/L 02/16/2024 9:34 AM [facility] Hemoglobin 13.7 11.9 - 15.8 g/dL 02/16/2024 9:34 AM [facility] Hematocrit 42.4 34.8 - 46.1 % 02/16/2024 9:34 AM [facility] MCV 84.5 80.0 - 98.0 fL 02/16/2024 9:34 AM [facility] MCH 27.3 26.7 - 33.6 pg 02/16/2024 9:34 AM [facility] MCHC 32.3 31.7 - 36.3 g/dL 02/16/2024 9:34 AM [facility] RDW-CV 14.0 11.3 - 14.8 % 02/16/2024 9:34 AM [facility] Platelet Count 319 150 - 420 x10E9/L 02/16/2024 9:34 AM [facility] MPV 10.3 7.8 - 11.4 fL 02/16/2024 9:34 AM [facility] Neutrophil % 90.0(H) 41.0 - 74.0 % 02/16/2024 9:34 AM [facility] Lymphocyte % 4.8(L) 17.0 - 47.0 % 02/16/2024 9:34 AM [facility] Monocyte % 4.6 3.0 - 11.0 % 02/16/2024 9:34 AM [facility] Eosinophil % 0.0 0.0 - 7.0 % 02/16/2024 9:34 AM [facility] Basophil % 0.2 0.0 - 1.6 % 02/16/2024 9:34 AM [facility] Immature Granulocytes % 0.4 0.0 - 1.0 % 02/16/2024 9:34 AM [facility] Neutrophil Absolute 18.56(H) 1.60 - 7.50 x10E9/L 02/16/2024 9:34 AM [facility] Lymphocyte Absolute 1.00 1.00 - 4.40 x10E9/L 02/16/2024 9:34 AM [facility] Monocyte Absolute 0.95 0.15 - 1.00 x10E9/L 02/16/2024 9:34 AM [facility] Eosinophil Absolute 0.00 0.00 - 0.60 x10E9/L 02/16/2024 9:34 AM [facility] Basophil Absolute 0.04 0.00 - 0.13 x10E9/L 02/16/2024 9:34 AM CDT [facility] Blood BLOOD SPECIMEN / Unknown Venipuncture / Unknown 02/16/2024 9:11 AM CDT 02/16/2024 9:31 AM T Sonia Stevens MD LAB - HEMATOLOGY ORD ERABLES [facility] [address] [place] [address], [facility] [phone] * (ABNORMAL) COMPREHENSIVE METABOLIC PANEL (02/16/2024 9:11 AM CDT) BUN 10 7 - 26 mg/dL 02/16/2024 10:04 AM [facility] Creatinine 0.85 0.56 - 0.96 mg/dL 02/16/2024 10:04 AM [facility] Sodium 138 136 - 145 mmol/L 02/16/2024 10:04 AM [facility] Potassium 4.0 3.5 - 4.5 mmol/L 02/16/2024 10:04 AM [facility] Chloride 106 98 - 107 mmol/L 02/16/2024 10:04 AM [facility] CO2 22 22 - 29 mmol/L 02/16/2024 10:04 AM [facility] Glucose 146(H) 70 - 115 mg/dL 02/16/2024 10:04 AM [facility] Calcium 9.3 8.4 - 10.2 mg/dL 02/16/2024 10:04 AM [facility] Protein Total 7.9 6.0 - 8.3 g/dL 02/16/2024 10:04 AM [facility] Albumin 3.9 3.4 - 5.0 g/dL 02/16/2024 10:04 AM [facility] Bilirubin Total 1.0 0.2 - 1.2 mg/dL 02/16/2024 10:04 AM [facility] Alkaline Phosphatase 137 40 - 150 U/L 02/16/2024 10:04 AM [facility] ALT 19 5 - 55 U/L 02/16/2024 10:04 AM [facility] AST 16 5 - 34 U/L 02/16/2024 10:04 AM [facility] Anion Gap 10 6 - 16 02/16/2024 10:04 AM [facility] BUN/Creatinine Ratio 12 7 - 23 02/16/2024 10:04 AM [facility] Osmolality Calculated 288 275 - 295 mOsm/kg 02/16/2024 10:04 AM [facility] Albumin/Globulin Ratio 1.0(L) 1.1 - 2.3 02/16/2024 10:04 AM [facility] eGFR by CKD-EPI 81(L) >=90 mL/min/1.7 3 m2 02/16/2024 10:04 AM [facility] Blood BLOOD SPECIMEN / Unknown Venipuncture / Unknown 02/16/2024 9:11 AM CDT 02/16/2024 9:31 AM CDT Sonia Stevens MD LAB - CHEMISTRY MELIDA DUBON Performing Organization Address City/[facility]/ZIP Co de Phone Number [address] [address], [place] [phone] * LIPASE BLOOD (02/16/2024 9:11 AM CDT) Lipase 10 8 - 78 U/L 02/16/2024 10:04 AM T [facility] Blood BLOOD SPECIMEN / Unknown Venipuncture / Unknown 02/16/2024 9:11 AM CDT 02/16/2024 9:31 AM CDT Narrative [facility] - 02/16/2024 10:04 AM CDT Lipase results from the [employer] analyzer may not be comparable with other methodologies. Sonia Stevens MD LAB - CHEMISTRY MELIDA DUBON [address] [address], [place] [phone] * LIPID PROFILE (11/05/2021 3:24 PM CDT) Cholesterol 171 <200 mg/dL 11/05/2021 4:39 PM [...] 9.5 ...................... 7.0 3X AVERAGE...................>23........................>11 Robyn Gutierrez GROUND SUPPORT EQUIPMENT ASSEMBLER-HUMAN RESOURCES COORDINATOR LAB - CHEM ISTRY ORDERABLES [facility] [address] [place] [address], [facility] from Last 3 Months or Most Recently Relevant to Health Maintenance Advance Directives * Full Code (Latest Code Status on File) Date Activated Date Inactivated Comments 08/11/2021 2:20 PM 08/12/2021 8:37 PM Care Teams Piano Builder Relationship Specialty Start Date End Date Tabatha [place], GROUND SUPPORT EQUIPMENT ASSEMBLER-HUMAN RESOURCES COORDINATOR [address] [place] [address] PCP - General Nurse Practitioner 12/10/20
--- OUTSIDE RECORDS SUMMARY | 2024-05-18 10:40 | XMS_ITS | Data Portability ---
Author Organization [place] [facility] [employer]- Address [address] [place] [address] Assessment No assessment recorded. Plan of Treatment Reminders Order Date Submit Date Provider Last Modified By Organization Details Last Modified Time Details Appointments None recorded. Lab None recorded. Referral None recorded. Procedures suture removal (PROC) 2019 [email or web address] Not available 0 18:41:06 Surgeries None recorded. Imaging None recorded. Medication Orders pantoprazo le 40 mg tablet,del ayed release 2019 020 INTERFACE [facility] [place], [address], 0 14:05:16 bupropion HCl XL 150 mg 24 hr tablet, extended release 2019 020 INTERFACE [facility] [address] [place], [address], 0 14:05:18 Percocet 5 mg-325 mg tablet [address] [facility] [address] [place], [address], 0 14:18:01 Medrol (Misbah) 4 mg tablets in a dose pack [address] [facility] [address] [place], [address], 0 12:47:23 tramadol 50 mg tablet 2019 020 INTERFACE [facility] [address] [place], [address], 0 16:43:03 Medrol (Misbah) 4 mg tablets in a dose pack 2019 020 [facility], [facility] [place], [address], 0 12:47:23 Patient TargetsNo targets recorded. Patient Instructions Encounter Date Encounter Id Patient Instructions Last Modified By Organization Details Last Modified Time 05/31/2019 [id number] elevated blood pressure: care instructions Not available 05/31/2019 14:05:07 RTO in 1 month i f 1. BP readings remain elevated. 2. If change in Bupropion to XR 150mg 1 daily is not beneficial. Otherwise routine follow up in 3-6 months. Please have specialist physicians keep me in the loop with their thoughts and any labwork or diagnostics ordered. Understanding voiced. Not available 05/31/2019 14:02:51 06/05/2019 [id number] See me in follow up in 1 week unless you can get in to see Dr. Grove. Understanding voiced. Not available 06/05/2019 16:35:02 WIll keep off wo rk an additional 2 days from ER release. RTW 06/08/2019-call that day if you believe you are unable to return to work. Restrictions to desk duties only. no filing, no cleaning, no climbing, etc. Copy of written statement retained in paper chart in this office. Additionally, it is premature to try to schedule an MRI of left shoulder at this time, as conservative measures have not been fully initiated. However, if such do not lessen pain and related dysfunction, then will consider proceeding. It is also quite common now that a trial of PT may be required before a PA for MRI be obtained. Understanding voiced. Not available 06/05/2019 16:39:33 11/08/2019 [id number] Work statement t o be off through Wednesday November 13, 2019. Pt initially asked to call with how she is tolerating the medication adjustments made today and her status update. She then asked if she should RTW on , 11/14/19-at which point she stated she wanted to just come back in . Depending upon status, head/brain imaging with be re-addressed at follow up appt. See HPI. Not available 11/08/2019 18:32:20 11/13/2019 [id number] Emily is to contact Dr. Cifuentes's office and report back to me what she learns as a result. For now, will extend her off work status until Wednesday, November 15, 2019. Understanding voiced. Follow up with me is not determined at this time except I am requesting copies of all notes and procedures for chart completeness. Not available 11/13/2019 12:12:34 11/23/2019 [id number] No particular further care as wound is well-healed today. No specific follow up anticipated/ needed at this time. Not available 11/23/2019 11:06:27 Reason for Referral None Reported. Problems Name Problem SNOMED Code Status Onset Date Resolution Date Notes Provider Name and Address Organization Details Recorded Time Female stress incontin ence 97024935 Active 2017 Had Botox injected in periureth ra area by Wrecker Operator 11/2018 with very good results. Teri Trejo MD [address] [facility] [place], [address], [employer] 0 12:20:45 Sleep disorder 76530931 Active 2017 Elisabet Estevez [facility] [employer] 8 15:21:06 Hypothyr oidism 53711066 Completed 201710/11/2018 Removal Reason: Dx changed to Ree Thyroidit is. 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 Teri Trejo MD [address] [place], [address], [employer] 0 12:21:11 Vitamin D deficien cy 36231105 Active 2018 Teri Trejo MD [address] [place], [address], [facility] [employer] 9 17:33:53 Problem Notes None recorded. Procedures Surgical History Date Name Laterality Status Provider Name and Address Organization Details Recorded Time 11/23/19 20 Suture/Staple removal completed Teri Trejo MD 13 [facility], [place], [address], [facility] [employer] 11/23/2019 11:04:22 total replacement of left knee joint completed Teri Trejo MD 13 [facility], [place], [address], [facility] [employer] 05/31/2019 12:22:49 bariatric operative procedure completed Teri Trejo MD [address] [place], [address], [facility] 05/31/2019 12:23:18 Back Surgery completed Teri Trejo MD [address] [place], [address], [facility] 05/31/2019 12:23:32 endometrial ablation completed Teri Trejo MD [address] [place], [address], [facility] 05/31/2019 12:23:49 cholecystectomy completed Teri Trejo MD [address] [place], [address], [facility] 06/05/2019 15:54:55 Imaging Results None recorded. Procedure Notes None recorded. Medical Equipment None Reported. Allergies Allergen ID Allergen Name Allergen Category Reaction Reaction Severity Criticality Documentation Date Start Date Code Code System Note Provider Name and Address Organization Details Recorded Time Mobic medicatio n hives moderate Not available 01/11/2017 82933 9 RxNorm Elisabet Herb [facility] 7 15:51:00 203 hydrocodo ne Not available nausea severe Not available 01/11/2017 5489 RxNorm Nause a AND Vomit ing Teri Trejo MD [address] [place], [address], [facility] 0 15:45:54 2082 codeine medicatio n vomiting severe Not available 06/05/2019 5190 RxNorm Nause a AND Vomit ing Teri Trejo MD [address] [place], [address], [facility] 0 15:45:37 Medications Name Sig Start Date Stop Date Status Note LastModified by Organization Details LastModified Time carisoprodo l 350 mg tablet Take 1 tablet 3 times a day by oral route. 03/25 completed Not Available Not Available Not Available amoxicillin 500 mg capsule 05/31 completed Not Available Not Available Not Available Miralax 17 gram/dose oral powder Take 17 g every day by oral route as needed for 7 days. 03/25 completed Not Available Not Available Not Available nystatin 100,000 unit/mL oral suspension 09/29 completed Not Available Not Available Not Available Euthyrox 200 mcg tablet TAKE 1 TABLET BY MOUTH ONCE DAILY active Not Available Not Available No t Available oxybutynin chloride ER 15 mg tablet,exte nded release 24 hr Take 1 tablet every day by oral route. 01/21 completed Not Available Not Available Not Available trazodone 50 mg tablet Take 1 tablet by mouth once daily active Not Available Not Available No t Available ibuprofen 800 mg tablet 05/31 completed Not Available Not Available Not Available tizanidine 4 mg tablet TAKE 1 TABLET BY MOUTH ONCE DAILY NEEDED active Not Available Not Available No t Available meloxicam 15 mg tablet 06/05 completed got in ER-al lergi c Not Available Not Available Not Available prednisone 20 mg tablet Take 3 tablets every day by oral route for 5 days. active Not Available Not Available No t Available Tubersol 5 tub. unit/0.1 mL intradermal injection solution TB skin test x 1 with directive as to who and when needs to read it. 2017 active Not Available Not Available Not Avai lable prednisone 5 mg tablet 09/29 completed Not Available Not Available Not Available Zithromax Z-Misbah 250 mg tablet TAKE 2 TABLETS (500 MG) BY ORAL ROUTE ONCE DAILY FOR 1 DAY THEN 1 TABLET (250 MG) BY ORAL ROUTE ONCE DAILY FOR 4 DAYS 03/30 completed Not Available Not Available Not Available metronidazo le 500 mg tablet 05/31 completed Not Available Not Available Not Available acetaminoph en 300 mg-codeine 30 mg tablet 05/31 completed N/V Not Available Not Available Not Available peg-electro lyte solution 420 gram oral solution TAKE DIRECTED active Not Available Not Available No t Available omeprazole 40 mg capsule,del ayed release TAKE 1 CAPSULE BY MOUTH TWICE DAILY active Not Available Not Available No t Available tramadol 50 mg tablet TAKE 1 TABLET BY MOUTH ONCE DAILY NEEDED FOR PAIN active Not Available Not Available No t Available bupropion HCl SR 100 mg tablet,12 hr sustained-r elease TAKE 1 TABLET BY MOUTH ONCE DAILY active Not Available Not Available No t Available ondansetron 8 mg disintegrat ing tablet active Not Available Not Available N ot Available ketorolac 10 mg tablet 05/31 completed Not Available Not Available Not Available oxycodone-a cetaminophe n 5 mg-325 mg tablet Take 1 tablet every 6 hours by oral route. 02/07 completed Not Available Not Available Not Available Guaiatussin AC 10 mg-100 mg/5 mL oral liquid 09/29 completed Not Available Not Available Not Available phenazopyri dine 100 mg tablet 05/31 completed Not Available Not Available Not Available benzonatate 100 mg capsule 09/29 completed Not Available Not Available Not Available pantoprazol e 40 mg tablet,darcy yed release TAKE 1 TABLET BY MOUTH TWICE DAILY active Not Available Not Available No t Available oseltamivir 75 mg capsule active Not Available Not Available Not Available levothyroxi ne 125 mcg tablet 05/31 completed Not Available Not Available Not Available clotrimazol e-betametha sone 1 %-0.05 % topical cream APPLY TO THE AFFECTED AND SURROUNDI NG AREAS OF SKIN BY TOPICAL ROUTE 2 TIMES PER DAY IN THE MORNING AND EVENING FOR 2 WEEKS 03/25 completed Not Available Not Available Not Available mupirocin 2 % topical ointment 09/29 completed Not Available Not Available Not Available ibuprofen 600 mg tablet active Not Available Not Available Not Available verapamil 80 mg tablet TAKE 1 TABLET BY MOUTH ONCE DAILY FOR 7 DAYS THEN 1 TWICE DAILY THEREAFTE R active Not Available Not Available No t Available methylpredn isolone 4 mg tablets in a dose pack TAKE 1 DOSE PACK DIRECTED BY ORAL ROUTE. 01/10 completed Not Available Not Available Not Available oxybutynin chloride 5 mg tablet TAKE 1 TABLET BY MOUTH THREE TIMES DAILY NEEDED active Not Available Not Available No t Available topiramate 100 mg tablet active Not Available Not Available Not Available Sudafed 30 mg tablet Take 2 tablets 3 times a day by oral route as needed. 09/29 completed Not Available Not Available Not Available Bactrim DS 800 mg-160 mg tablet Take 1 tablet every 12 hours by oral route. 11/06 completed Not Available Not Available Not Available cholestyram ine (with sugar) 4 gram powder for susp in a packet active Not Available Not Available Not Available bupropion HCl XL 150 mg 24 hr tablet, extended release Take 1 tablet by mouth once daily active Not Available Not Available No t Available tizanidine 4 mg capsule TAKE 1 CAPSULE BY MOUTH AT BEDTIME NEEDED active Not Available Not Available No t Available Wellbutrin SR 11/06 completed Not Available Not Available Not Available Toviaz 4 mg tablet,exte nded release 09/29 completed Not Available Not Available Not Available Vitamin D3 125 mcg (5,000 unit) tablet Take 2 tablets every day by oral route. active Not Available Not Available No t Available Xarelto 10 mg tablet 09/29 completed Not Available Not Available Not Available Vitals Date Recorded Body height Heart rate Respiratory rate Body temperature Body mass index (BMI) Body weight Oxygen saturation Oxygen saturation in Arterial blood by Pulse oximetry Systolic blood pressure Diastolic blood pressure Provider Name and Address Organization Details Last Updated DateTime 0 167.64 cm 78 /min 20 /min 97.7 [degF] 47.3 kg/m2 665982. 56 g 99 % 99 % 144 mm[Hg] 78 mm[Hg] [employer] 0 11:53:09 Date Recorded Body height Heart rate Respiratory rate Body temperature Body mass index (BMI) Body weight Oxygen saturation Oxygen saturation in Arterial blood by Pulse oximetry Systolic blood pressure Diastolic blood pressure Provider Name and Address Organization Details Last Updated DateTime 0 167.64 cm 78 /min 20 /min 98 [degF] 47.3 kg/m2 387975. 56 g 98 % 98 % 132 mm[Hg] 78 mm[Hg] [facility] [employer] 0 15:09:40 Date Recorded Body height Heart rate Respiratory rate Body temperature Body mass index (BMI) Body weight Oxygen saturation Oxygen saturation in Arterial blood by Pulse oximetry Systolic blood pressure Diastolic blood pressure Provider Name and Address Organization Details Last Updated DateTime 0 167.64 cm 86 /min 20 /min 98.1 [degF] 47 kg/m2 343695. 38 g 96 % 96 % 118 mm[Hg] 72 mm[Hg] [facility] [employer] 0 16:05:16 Date Recorded Body height Heart rate Respiratory rate Body temperature Body mass index (BMI) Body weight Oxygen saturation Oxygen saturation in Arterial blood by Pulse oximetry Systolic blood pressure Diastolic blood pressure Provider Name and Address Organization Details Last Updated DateTime 0 167.64 cm 54 /min 20 /min 98.3 [degF] 47.5 kg/m2 422825. 16 g 97 % 97 % 142 mm[Hg] 86 mm[Hg] [employer] [employer] 0 11:12:23 Social History Question Answer Notes LastModified by Organizat ion Details LastModified Time Tobacco Smoking Status Never Smoker Not Available [employer] 02/27/2020 03:56:12 Are You Currently Employed? Yes [id number] Information not available 02/27/2020 Hard Of Hearing Or Deaf In One Or Both Ears? No Information not available 05/31/2019 Legally Blind In One Or Both Eyes? No Information not available 05/31/2019 Live Alone Or With Others? With Others Information not available 05/31/2019 Do You Use Protection During Sex? No [id number] Information not available 02/27/2020 Are You Sexually Active? Yes [id number] Information not available 02/27/2020 General Stress Level Medium Information not available 05/31/2019 Sex: Unknown Functional Status Question Answer Note LastModified by Organization D etails LastModified Time Are you able to care for yourself? Yes [id number] Information n ot available 02/27/2020 Mental Status None recorded. Family History Nothing Reported. Medical History No medical history recorded. Gynecological History Statement/Question Response Flow Date of LMP Sexually Active? Y STIs/STDs Y Sexual Problems? N Current Control Method N/A Desired Control Method N/A LMP Obstetrics History GPAL:G 0 P 0 0 0 0 Immunizations Vaccine Type Date Status Note Provider Nam e and Address Organization Details Recorded Time Td(adult) unspecified formulation 10/28/2015 completed Elisabet Estevez [facility] [employer] [facility] 01/11/2017 15:52:25 Past Encounters Encounter ID Performer Location Encounter Start Date Encounter Closed Date Diagnosis/Indication Diagnosis SNOMED-CT Code Diagnosis ICD10 Code Diagnosis Note [id number] Teri Trejo MD MAIN OFFICE [address] [place] [address] 02/23/2017 12:46:23 02/23/2017 12:47:41 [id number] Teri Trejo MD MAIN OFFICE [address] [place] [address] 03/24/2017 16:31:51 03/25/2017 09:04:05 Acute sinusitis 60123312 J01.90 [id number] Teri Trejo MD MAIN OFFICE [address] [place] [address] 06/17/2017 11:56:42 06/17/2017 13:15:07 Chronic sinusitis 44741951 J32.9 Recommend taking an OTC antihistam ine for a few weeks and if not better or stable, RTO to discusse additional options. Renewal of prescription 385986692 Z76.0 Joint derangement 348015 007 M24.9 Urgent fly roya to urinate 10487584 R39.15 Hypothyroi dism due to Ree's thyroiditis 099491946 E06.3 History of bariatric surgical procedure 234975383 Z98.84 [id number] Teri Trejo MD MAIN OFFICE [address] [place] [address] 09/28/2017 16:18:14 09/28/2017 17:33:07 Dysuria 19998079 R30.0 Acute urin soham tract infection 596569702 N39.0 Submit specimen to reference lab for C&S Strain of left trapezius muscle 6097087292 1872300 S29.012A Explained to pt. She is to ice and/or apply heat as instructed . May use NSAID of choice, alt with Tylenol and use the muscle relaxer (below) as well. Additional ly, she has Tramadol at home. [id number] Teri Trejo MD MAIN OFFICE [address] [place] [address] 12/21/2017 12:01:40 12/21/2017 12:56:32 Contact dermatitis 00667028 L25.9 Candidiasis of skin 4988 3006 B37.2 Sleep disorder 71014333 G47.9 Female str ess incontinence 04302740 N39.3 Discuss with Wrecker Operator at next appt. May try increasing dose to 7.5 .mg TID from 5 mg TID. Voiced understand ing [id number] Teri Trejo MD MAIN OFFICE [address] [place] [address] 02/16/2018 12:03:26 02/16/2018 12:54:02 Allergic rhinitis 96142562 J30.2 [id number] Teri Trejo MD MAIN OFFICE [address] [place] [address] 03/15/2018 12:05:33 03/15/2018 12:57:39 History and physical examination, pre-employment 216197156 Z02.1 PE portion of form is completed and signed by me today. An order for TB screen is given to her to have done at her pharmacy or the . If I read the screen she is instructed to bring the original form copy in for my signature, otherwise the green party who reads the test will need to sign it. Understand ing is voiced. A copy of the form will be retained in the paper chart in this office. [id number] Teri Trejo MD MA[address] OFFICE [address] [place] [address] 09/29/2018 10:43:58 09/29/2018 11:31:45 Renewal of prescription 648791495 Z76.0 History of left total knee replacement 9888680662 825395 Z96.652 Female str ess incontinence 52358367 N39.3 To see Wrecker Operator soon per pt. Anxiety 65106445 F41.9 Hypothyroidism 33884883 E03.9 Sleep disorder 03679306 G47.9 [id number] Teri Trejo MD MAIN OFFICE [address] [place] [address] 05/31/2019 11:08:03 05/31/2019 12:16:34 Ree thyroiditis 66553464 E06.3 Sampled #28 Synthroid 100 mcg to take 2 po daily until seen by Endocrine on 06/14/2019. Defer labs to Dr. Amador at point of consultati on. Severe obesity 812356232 1 9104 E66.01 History of bariatric surgical procedure 088832611 Z98.84 Has plateaued and is re-gaining weight. Encouraged to resume program as defined. Bilateral knee pain 1187 509258 7588185 M25.561 M25.562 defer further eval and management to Ortho. History of left total knee replacement 8776343805 207592 Z96.652 Elevated blood-pressure reading without diagnosis of hypertension 757807003 R03.0 Monitor BP and report is readings are trending upward. Chronic low back pain 27 9676030 M54.5 Also follows with Ortho Adult atte ntion deficit hyperactivity disorder 094779881 F90.9 Pt just today reported this diagnosis when she stated why she takes this med. States it makes her tired but that daytime may be shaky at times. Will adjust dosage and form Gastroesop hageal reflux disease without esophagitis 875148047 K21.9 Serous susana tis media of right ear 4729639467 686266 H65.91 mild, recommend OTC anti-hista mine of choice. Understand ing voiced. [id number] Teri Trejo MD MAIN OFFICE [address] [place] [address] 06/05/2019 15:02:44 06/05/2019 16:42:24 Shoulder strain 839853387 S46.912A STOP Meloxicam. Has Ibuprofen for prn use and is advised to be judicious due to hx of Bariatric Surgery. Understand ing voiced. Will also give Percocet, and Medrol Dospak-whi ch was discussed with pt. Apply i.ce and/or heat every 3-4 hours for the next several days. May try [place] [id number] Teri Trejo MD MAIN OFFICE [address] [place] [address] 11/08/2019 15:34:52 11/08/2019 16:48:16 Headache 28226846 R51 To also use the muscle relaxer you already have-take 1/2 tab every 6-8 hours while awake and also may take 1-2 Tylenol as needed for HAs in addition to the Tramadol ordered below. [id number] Teri Trejo MD MAIN OFFICE [address] [place] [address] 11/13/2019 10:53:02 11/13/2019 11:28:20 Cervical disc disorder 359698146 M50.[address] Cifuentes for further management and treatment. [id number] Teri Trejo MD MAIN OFFICE [address] [place] [address] 11/23/2019 10:32:22 11/23/2019 11:05:25 Laceration of finger 704575903 S61.211A Removal of sutures done 2067678538 98800 Z48.02 Health Concerns Section Related Observation LastModified by Organization Detai ls LastModified Time None Recorded Concern Status LastModified by Organization Details LastModified Time None Recorded Advance Directives Directive None Recorded Payers Encounter Date Sequence Insurance Name Policy Number Policy Watts Covered Member ID Watts Member ID Guarantor Name 05/31/2019 2 [facility] PRIOR TO 10/24/2020 (MEDICAID REPLACEMENT - HMO) Emily Abebe [id number] Emily Abebe 05/31/2019 1 [employer]: [place]PPO[place] Emily Abebe [id number] Emilypascual Abebe 06/05/2019 2 [facility] PRIOR TO 10/24/2020 (MEDICAID REPLACEMENT - HMO) Emily Abebe [id number] Emily Abebe 06/05/2019 1 [employer] Emily Abebe [id number] Emily Abebe 11/08/2019 2 [facility] PRIOR TO 10/24/2020 (MEDICAID REPLACEMENT - HMO) Emily Abebe [id number] Emily Abebe 11/08/2019 1 [employer] Emily Abebe [id number] Emily Abebe 11/13/2019 2 [facility] PRIOR TO 10/24/2020 (MEDICAID REPLACEMENT - HMO) Emily Abebe [id number] Emily Abebe 11/13/2019 1 [employer] Emily Abebe [id number] Emily Abebe 11/23/2019 2 [facility] PRIOR TO 2020 (MEDICAID REPLACEMENT - HMO) Emily Abebe [id number] Emily Abebe 11/23/2019 1 [employer] Emily Abebe [id number] Emily Abebe Notes Date Note Type Note Provider Name and Address Organization Details Recorded Time 05/31/2019 text/html Emily is here today in need of a short rx of her Levothyroxine 200 mcg. She has an appt to see Dr. Amador in consultation on 06/14, and expects he will do labwork and then rx for her. Her full med list is reviewed and updated as of today. She tells me she had Botox injection(s) by Wrecker Operator in Nov 2018 and this has largely resolved her incontinence issue. She still takes the Oxybutynin but now only at HS. She does had issues with GERD and states she often has regurgitation overnight and in the morning. She has not been losing much weight the last several months. States she eating/consuming pattern is that of grazing and picking often most of her waking hours. She is not taking a PPI or B3Mawtadb. Additionally, she is having pain in her knees after falling a week or two ago. The left-S/P-TKR-isn't too bad though she notes there is still lateral numbness since the surgery, but the right is still painful especially at night. She had an appointment to see Dr Grove for this tomorrow so I will not rx anything today and defer to his assessment and plan. Emily was seen in the [facility] following her incident. Her BP is noted to be elevated for her today but she states it may be due to her discomfort which is likely contributing. 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 There are no other concerns or new problems today. ADDN: During this encounter, Emily mentioned she is still bothered by back pain-sees Dr. Grove for this as well and he has done previous surgery. At the end of this encounter, Emily asked me to inspect her right ear due to discomfort, pressure. She states she had a tooth pulled some time ago and this ear has bothered her since, Teri Trejo MD [address] [place], [address], [facility] [employer] 05/31/2019 14:07:30 06/05/2019 text/html Took a tumble at work / cleaning per directive from boss. Apparently, the mat that was put down did not radiology supervisor the carpet as it was supposed to and when pt stepped on is after placing it as instructed, it slid with her and she went down. In the fall, she struck her knees, and caught her left elbow on a filing cabinet with her full weight. This put undo force on her left upper arm and shoulder. She did not realize if or how significantly injured she was initially. Her boss asked if she needed to go to the doctor. A couple of hours after the incident, aching then pain to her left upper extremity was apparent. She went to the ER at [facility]the hospital her Ortho goes to but she did not see him (didn't really expect to up believed any records would be more available if further follow up was needed...) Unfortunately, the meds she was given there she is allergic to/intolerant of. She inadvertently took 1 dose of Meloxicam yesterday, but did not realize it is Mobic, which she is allergic to, until an itchy rash broke out. She did not get the Hydrocodone because it and Codeine both cause nausea with vomiting. She has taken rather high dose Benadryl for the Mobic/Meloxicam reaction and did sleep some earlier today but sleep has been difficult as well. Her left shoulder and left knee were imaged in the ER and no fractures were identified by the ER doc. Today, Patience had decreased ROM of her left upper extremity as well as pain. She states her left knee is fine now and of no particular concern at this time. She did not loose consciousness or experience any other symptoms prior, during or after the fall. Emily did ask about proceeding with MRI of her left shoulder and I believe this would be premature at this time, since there has really been no specific therapies tried thus far, and it is still in the acute/subacute time frame. She also asked about a sling for her left arm-this is reasonable though she is counseled that this could injure/strain her neck due to the weight of the extremity, though she may try this. Understanding is voiced. Finally, she it supposed to RTW tomorrow, 06/05/2019 per the ER doc, I will push this out another couple of days and restrict her to only desk tasking initially. She is to call if she believes she is unable to go in 06/08/2019. Emily is right-hand dominant. Teri Trejo MD [address] [place], [address], [employer] 06/05/2019 16:44:37 11/08/2019 text/html Emily is here today for an acute visit. She is complaining of headaches. She states these are daily occurrences and begin in her neck and go up over th top of her head. She states they are severe in pain intensity and is calling her HAs migraines. She does have a history of migraines in the past. She also states she eventually becomes nauseated from the pain and does usually vomit. She has had to leave work many days due to them. She dates their onset to the injury she sustained in a fall at work-see May note. Initially her complaint was her left shoulder and arm and that is good now-after seeing and being treated by Ortho. However, she complained about her neck to Ortho and was sent to a Spine Ortho who she states has given her 1 epidural steroid injection a few weeks ago which did nothing. Her next appt there is 12/14/2019. She thinks neck surgery may be in her future. I will have to look to see if I have received anything on this since it was a secondary referral. She asks if I think she should work. Her current meds are reviewed and there are some I did not know about from other providers. As for Spine Ortho, she has no specific pain med. She does not tolerate Hydrocodone or Codeine from a GI standpoint. She is out of the Tramadol she initially had for her shoulder-from Ortho. Emily also sees Wrecker Operator-who sent her to GI. She has had an EGD and says her Harshal sleeve procedure from several years ago may be converted to a Della-en-Y...? She also sees Endocrinology-she was recently started on 100mg Topamax and had a reaction from the dose after taking it twice, and was seen in the [facility] ER on 10/17/2019. It was for weight loss per pt today. Unfortunately, she has taken this in the remote past for Migraines with good results but started at lower doses and titrated upward. She is not afraid of the med altogether. Toward the end of this encounter, after the exam, she asks about head/brain imaging. As of today, I do not see a specific reason to schedule anything without trying to carlene the headaches. She also reports having to write words in the air before she can verbalize them and she is demonstrating this to me during this encounter. 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 Teri Trejo MD [address] [place], [address], [facility] [employer] 11/08/2019 18:32:44 11/13/2019 text/html Pt's txt d the office phone 16 pm to request a Medrol Dospak. Since I have not been involved with this situation except at the very beginning in May, 2019, and just recently became involved again (today confirmed this is a WC situation), that request was not granted. Emily states she has only been off work since she last saw me a few days ago. She is adamant that she cannot perform her job tasks due to her LEDESMA at this time. She states she has already rearranged her desk/work space without improvement in her complaints and that she cannot continue to leave work frequently due to her HAs. She is trying to get her appt with Dr Cifuentes on Dec 14, 2019, moved up. Emily states the initial injection to her neck was not beneficial at all. She already has a weight lift restriction from one of the other providers and sees Dr Meehan in about 1 week and anticipates release from him for her left shoulder at that time. Emily states she got a second Medrol Dospak from the [facility] about 1 month ago after the initial one I gave her in May at initial presentation-see that note, and a second one from either Dr Meehan or [facility] in July. Today, she states she is doing so-so but cannot turn her head to the left. She is not drawing words in the air as she was last week. She did get the Tramadol and has been able to sleep for about 4 hours at a time with it. 11/17/2019,,,In reviewing the [place] website today, the Tramadol prescribed on November 08, 2019, was not dispensed until November 15, 2019. BAB Teri Trejo MD [address] [place], [address], [employer] 11/17/2019 14:51:03 11/23/2019 text/html Emily is here today for removal of sutures in her left index finger placed 11/13/2019 in the [facility] ER after sustaining a lac from a knife. Teri Trejo MD [address] [place], [address], [employer] 11/28/2019 14:20:12 OBGyn Episode No OBEpisode recorded.
--- OUTSIDE RECORDS SUMMARY | 2024-05-18 10:40 | XMS_ITS | Clinical Summary ---
Author Organization [facility] Address [address] [place] [address]. [place], [place] [id number] [place] [address] Care Team Providers Care Student Outreach Coordinator Name Role Phone Unavailable Primary Care Provider Unavailabl e Social History Tobacco Use Types Packs/Day Years Used Date Smoking Tobacco: Never Assessed Comments Unknown Sex and Gender Information Value Date Recorded Sex Assigned at Not on file Legal Sex Female 9:54 PM CDT Gender Identity Not on file Sexual Orientation Not on file Plan of Treatment Health Maintenance Due Date Last Done Comments Cervical Cancer Screening Pa p Smear (Age 30 to 64) Every 3 Years 1969 Colorectal Cancer Screening Colonoscopy (10 Years) 1969 Annual Physical 1972 Hepatitis C 1987 DTaP, Tdap and Td Vaccines ( 1 - Tdap) 1988 Hepatitis B Vaccines (1 of 3 - 19+ 3-dose series) 1988 Cervical Cancer Screening Pa p with HPV Testing (Age 30 to 64) Every 5 Years 1999 Cervical Cancer Screening with HPV 1999 Mammogram Screening 2009 Zoster Vaccines (1 of 2) 2019 COVID-19 Vaccine (2023-2 5 season) 2023 Influenza Adult (#1) 2024 Meningococcal B Vaccine Aged Out No l onger eligible based on patient's age to complete this topic Meningococcal Vaccine Aged Out No vilma samm eligible based on patient's age to complete this topic Pneumococcal Vaccine: Pediat rics (0 to 5 Years) and At-Risk Patients (6 to 64 Years) Aged Out No longer eligible b ased on patient's age to complete this topic RSV Immunizations Under 20 Months Aged Out No longer eligible based on patient's age to complete this topic Insurance [employer] - TH[employer] GREEN PARTY LIABILITY
--- OUTSIDE RECORDS SUMMARY | 2024-05-18 10:40 | XMS_ITS | Clinical Summary ---
Author Organization [facility] Address [address] [place] [address] Care Team Providers Care Consulting Application Engineer Name Role Phone Unavailable Primary Care Provider Unavailabl e Allergies Active Allergy Reactions Criticality Noted Date Comments Adhesive - Bee Venom Protein (Honey Bee) Anaphylaxis High 12/24 - Gluten - Active Problems Problem Noted Date Diagnosed Date Fatigue due to treatment 02/05/2016 Bariatric surgery status 01/08/2016 Morbid obesity 10/02/2015 Impaired glucose tolerance 07/10/2015 Vitamin D deficiency 07/10/2015 Celiac disease 05/31/2015 Family History Medical History Relation Comments Heart disease Father Kidney disease Father Stroke Father Anemia Mother No Known Problems Sister Relation Status Comments Father Alive Mother Alive Sister Alive Social History Tobacco Use Types Packs/Day Years Used Date Smoking Tobacco: Never Assessed Comments Unknown Sex and Gender Information Value Date Recorded Sex Assigned at Not on file Legal Sex Female 9:27 PM CDT Gender Identity Not on file Sexual Orientation Not on file Last Filed Vital Signs Vital Sign Reading Time Taken Comments Blood Pressure 122/70 07/08/2016 10:09 AM CDT Pulse 70 07/08/2016 10:09 AM CDT Temperature 36.6 ??C (97.8 ??F) 07/08/2016 10:09 AM C DT Respiratory Rate 18 07/08/2016 10:09 AM CDT Oxygen Saturation 99% 07/08/2016 10:09 AM CDT Inhaled Oxygen Concentration - - Weight 104 kg (229 lb) 07/08/2016 10:09 AM CDT Height 170.2 cm (5' 7 ) 10/02/2015 1:29 PM CDT Body Mass Index 35.87 10/02/2015 1:29 PM CDT Plan of Treatment Not on file
--- OUTSIDE RECORDS SUMMARY | 2024-05-18 10:40 | XMS_ITS | Clinical Summary ---
Author Organization [facility] Address [address] [place] [address] Care Team Providers Care Sole Leveling Machine Operator Name Role Phone Tabatha Jaimes QUALITY ASSURANCE-SCOOP FILLER Primary Care Provider Source Comments [facility],non-owned Affiliates and Associated Physician Practices is amultiple site organization consisting of ambulatory clinics and hospital sitesin [place], [place], [place] and [place]. This disclosure is being madepursuant to the Care Everywhere program and may not contain all information available regarding this patient. Last updated 18[facility] Allergies Active Allergy Reactions Criticality Noted Date [...] NEEDED FOR SPASM/HEADACHE 05/28/2021 Active Probiotic Product (H[employer]ernia [employer]) capsuleIndications:Gas troesophageal reflux disease with esophagitis without [...] 45.0-49.9, adult 12/13/2020 Gastroesophageal reflux disease 12/13/2020 Encounters Date Type Department Care Team Description 02/16/2024 4:22 PM CDT - 02/16/2024 4:26 PM CDT Emergency [facility] EM[facility] [address] [place] [address] Discharge Disposition: Left Against Medical Advice/Discontinued Care 02/16/2024 Travel from Last 3 Months Family History Medical History Relation Name Comments CVA Father Heart Failure Father Thyroid Disease Maternal Grandfather Thyroid Disease Mother Relation Name Status Comments Father Maternal Grandfather Mother Social History Tobacco Use Types Packs/Day Years [...] Mass Index 43.85 02/16/2024 5:32 AM CDT Plan of Treatment Health Maintenance Due Date Last Done Comments COLOGUARD (AGES 45-75) - COLON CA SCREENING 1969 COLON MONITORING 1969 COLONOSCOPY - COLON CA SCREENING 1969 CT COLONOGRAPHY - COLON CA SCREENING 1969 Colorectal Cancer Screening 1969 FIT - COLON CA SCREENING 1969 FLEX SIG - COLON CA SCREENING 1969 MAMMOGRAM 1969 PAP SMEAR 1969 HIV SCREENING 1984 HEPATITIS C SCREENING 05/02/1987 DTAP/TDAP/TD VACCINES (1 - Tdap) 1988 HEPATITIS B VACCINE (1 of 3 - 19+ 3-dose series) 1988 PNEUMOCOCCAL VACCINE 50+ (1 of 1 - PCV) 2019 ZOSTER VACCINE (1 of 2) 2019 COVID-19 VACCINE (1 - season) 2023 INFLUENZA VACCINE (#1) 2023 DEPRESSION SCREENING 04/26/2024 LIPID TESTING 11/05/2026 11/05/2021, 02/01/2021 SCREENING FOR DIABETES 02/15/2027 , 11/05/2021, 08/12/2021, Additional history exists HIB VACCINE Aged Out No longer eligi ble based on patient's age to complete this topic HPV VACCINE Aged Out No longer eligi ble based on patient's age to complete this topic MENINGOCOCCAL (Group B) VACCINE Aged Out No longer eligible based on patient's age to complete this topic MENINGOCOCCAL VACCINE Aged Out No vilma samm eligible based on patient's age to complete this topic PNEUMOCOCCAL VACCINE Aged Out No long er eligible based on patient's age to complete this topic Procedures Procedure Name Priority Date/Time Associated Diagnosis [...] UA Cortney(A) Straw, Yellow 02/16/2024 9:43 AM [facility] Clarity UA t Cloudy(A) Clear 02/16/2024 9:43 AM [facility] Specific [place] UA 1.025 1.005 - 1.030 02/16/2024 9:43 AM [facility] pH UA 5.0 5.0 - 8.0 pH 02/16/2024 9:43 AM [facility] Protein UA Negative Negative 02/16/2024 9:43 AM [facility] Glucose UA Negative Negative 02/16/2024 9:43 AM [facility] Ketone UA Negative Negative 02/16/2024 9:43 AM [facility] Bilirubin UA Negative Negative 02/16/2024 9:43 AM [facility] Blood UA Negative Negative 02/16/2024 9:43 AM [facility] Nitrite UA Positive(A) Negative 02/16/2024 9:43 AM [facility] Leukocyte Esterase Negative Negative 02/16/2024 9:43 AM [facility] Urobilinogen UA 4.0(A) Negative mg/dL 02/16/2024 9:43 AM [facility] RBC UA 3-5 None Seen, 0-2, 3-5 /HPF 02/16/2024 9:43 AM [facility] WBC UA 6-10(A) None Seen, 0-5 /HPF 02/16/2024 9:43 AM [facility] Bacteria UA 1+(A) None /HPF 02/16/2024 9:43 AM [facility] Squamous Epithelial Cells UA 3-5 None Seen, 0-2, 3-5 /HPF 02/16/2024 9:43 AM [facility] Mucus UA 4+ /LPF 02/16/2024 9:43 AM [facility] Hyaline Casts UA 0-2 None Seen, 0-2 /LPF 02/16/2024 9:43 AM [facility] Urine URINE SPECIMEN OBTAINED BY CLEAN CATCH PROCEDURE / Unknown Collection / Unknown 02/16/2024 9:31 AM CDT 02/16/2024 9:33 AM CDT Narrative [facility] - 02/16/2024 9:43 AM CDT Sonia Stevens MD LAB - URINALYSIS ORD ERABLES [facility] [address] [place] [address], [facility] [phone] * (ABNORMAL) CBC W AUTO DIFFERENTIAL (02/16/2024 9:11 AM CDT) WBC 20.6(H) 4.0 - 10.7 x10E9/L 02/16/2024 9:34 AM T [facility] RBC Count 5.02 3.90 - 5.20 x10E12/L 02/16/2024 9:34 AM [facility] Hemoglobin 13.7 11.9 - 15.8 g/dL 02/16/2024 9:34 AM [facility] Hematocrit 42.4 34.8 - 46.1 % 02/16/2024 9:34 AM [facility] MCV 84.5 80.0 - 98.0 fL 02/16/2024 9:34 AM [facility] MCH 27.3 26.7 - 33.6 pg 02/16/2024 9:34 AM [facility] MCHC 32.3 31.7 - 36.3 g/dL 02/16/2024 9:34 AM [facility] RDW-CV 14.0 11.3 - 14.8 % 02/16/2024 9:34 AM [facility] Platelet Count 319 150 - 420 x10E9/L 02/16/2024 9:34 AM [facility] MPV 10.3 7.8 - 11.4 fL 02/16/2024 9:34 AM [facility] Neutrophil % 90.0(H) 41.0 - 74.0 % 02/16/2024 9:34 AM [facility] Lymphocyte % 4.8(L) 17.0 - 47.0 % 02/16/2024 9:34 AM [facility] Monocyte % 4.6 3.0 - 11.0 % 02/16/2024 9:34 AM [facility] Eosinophil % 0.0 0.0 - 7.0 % 02/16/2024 9:34 AM [facility] Basophil % 0.2 0.0 - 1.6 % 02/16/2024 9:34 AM [facility] Immature Granulocytes % 0.4 0.0 - 1.0 % 02/16/2024 9:34 AM [facility] Neutrophil Absolute 18.56(H) 1.60 - 7.50 x10E9/L 02/16/2024 9:34 AM [facility] Lymphocyte Absolute 1.00 1.00 - 4.40 x10E9/L 02/16/2024 9:34 AM [facility] Monocyte Absolute 0.95 0.15 - 1.00 x10E9/L 02/16/2024 9:34 AM [facility] Eosinophil Absolute 0.00 0.00 - 0.60 x10E9/L 02/16/2024 9:34 AM [facility] Basophil Absolute 0.04 0.00 - 0.13 x10E9/L 02/16/2024 9:34 AM [facility] Blood BLOOD SPECIMEN / Unknown Venipuncture / Unknown 02/16/2024 9:11 AM CDT 02/16/2024 9:31 AM CDT Sonia Stevens MD LAB - HEMATOLOGY ORD ERABLES Performing Organization Address City/State/[facility] Co de Phone Number [facility] [address] [place] [address], [facility] [phone] * (ABNORMAL) COMPREHENSIVE METABOLIC PANEL (02/16/2024 9:11 AM CDT) BUN 10 7 - 26 mg/dL 02/16/2024 10:04 AM [facility] Creatinine 0.85 0.56 - 0.96 mg/dL 02/16/2024 10:04 AM [facility] Sodium 138 136 - 145 mmol/L 02/16/2024 10:04 AM [facility] Potassium 4.0 3.5 - 4.5 mmol/L 02/16/2024 10:04 AM [facility] Chloride 106 98 - 107 mmol/L 02/16/2024 10:04 AM [facility] CO2 22 22 - 29 mmol/L 02/16/2024 10:04 AM [facility] Glucose 146(H) 70 - 115 mg/dL 02/16/2024 10:04 AM [facility] Calcium 9.3 8.4 - 10.2 mg/dL 02/16/2024 10:04 AM [facility] Protein Total 7.9 6.0 - 8.3 g/dL 02/16/2024 10:04 AM [facility] Albumin 3.9 3.4 - 5.0 g/dL 02/16/2024 10:04 AM [facility] Bilirubin Total 1.0 0.2 - 1.2 mg/dL 02/16/2024 10:04 AM [facility] Alkaline Phosphatase 137 40 - 150 U/L 02/16/2024 10:04 AM [facility] ALT 19 5 - 55 U/L 02/16/2024 10:04 AM [facility] AST 16 5 - 34 U/L 02/16/2024 10:04 AM [facility] Anion Gap 10 6 - 16 02/16/2024 10:04 AM [facility] BUN/Creatinine Ratio 12 7 - 23 02/16/2024 10:04 AM [facility] Osmolality Calculated 288 275 - 295 mOsm/kg 02/16/2024 10:04 AM [facility] Albumin/Globulin Ratio 1.0(L) 1.1 - 2.3 02/16/2024 10:04 AM [facility] eGFR by CKD-EPI 81(L) >=90 mL/min/1.7 3 m2 02/16/2024 10:04 AM [facility] Blood BLOOD SPECIMEN / Unknown Venipuncture / Unknown 02/16/2024 9:11 AM CDT 02/16/2024 9:31 AM T Sonia Stevens MD LAB - CHEMISTRY ORDE JAGDISH Performing Organization Address City/State/[facility] Co de Phone Number [address] [address], [facility] [phone] * LIPASE BLOOD (02/16/2024 9:11 AM CDT) Lipase 10 8 - 78 U/L 02/16/2024 10:04 AM CDT [facility] Blood BLOOD SPECIMEN / Unknown Venipuncture / Unknown 02/16/2024 9:11 AM CDT 02/16/2024 9:31 AM CDT Narrative [facility] - 02/16/2024 10:04 AM CDT Lipase results from the [employer] Alinity analyzer may not be comparable with other methodologies. Sonia Stevens MD LAB - CHEMISTRY ORDE JAGDISH Performing Organization Address [facility] Co de Phone Number [address] [address], [facility] [phone] * LIPID PROFILE (11/05/2021 3:24 PM CDT) [...] 9.5 ...................... 7.0 3X AVERAGE...................>23........................>11 Robyn Gutierrez QUALITY ASSURANCE-SCOOP FILLER LAB - CHEM ISTRY ORDERABLES [facility] [address] [place] [address], [facility] from Last 3 Months or Most Recently Relevant to Health Maintenance Advance Directives * Full Code (Latest Code Status on File) Date Activated Date Inactivated Comments 08/11/2021 2:20 PM 08/12/2021 8:37 PM Care Teams Sole Leveling Machine Operator Relationship Specialty Start Date End Date Tabatha Jaimes APRN-SCOOP FILLER [address] [place] [address] PCP - General Nurse Practitioner 12/10/20
== END 2024-05-14 14:02 | disposition home or self-care (01) ==
PROVIDERS: Emergency Medicine; Emergency Provider Preventive Medicine Aerospace Medicine
DX: J00 Acute nasopharyngitis [common cold] (principal); J34.89 Other specified disorders of nose and nasal sinuses; Z20.822 Contact with and (suspected) exposure to COVID-19; E03.9 Hypothyroidism, unspecified; F32.A Depression, unspecified; Z87.891 Personal history of nicotine dependence; Z79.899 Other long term (current) drug therapy
CPT/HCPCS: 87637; 99283